=== PATIENT | male | born 1940 | race Caucasian/White ===

== ENCOUNTER 2017-08-03 07:45 | Day surgery (SDC) | payer BC ==
[2017-08-03 08:32] VITALS: BMI 26.9
[2017-08-03] MEDS ORDERED: Liquid Adhesive TOP ONE (09:26)
[2017-08-03] MEDS ORDERED: Lidocaine 1% w Epi 1:100,000 Inj ONE (09:26)
[2017-08-03] MEDS ORDERED: Bupivacaine 0.25% Inj(30mL) ONE (09:26)
[2017-08-03] MEDS ORDERED: Lidocaine 1% Inj (20ml) ONE (09:27)
[2017-08-03] MEDS ORDERED: Bupivacaine 0.5% Inj(30mL) ONE (09:27)
[2017-08-03 10:26] VITALS: O2SAT 95
--- NOTE | 2017-08-03 10:52 | PCM.SURG1 ---
Surgeon's Initial Post Op Note - Surgeon's Notes Surgeon: Santos Collar Packer: Getachew PGY2, Tri PGY1 Type of Anesthesia: Local Pre-Operative Diagnosis: Forehead Lipoma, Back Sebaceous Cyst Operative Findings: Forehead Lipoma, Back Sebaceous Cyst Post-Operative Diagnosis: Forehead Lipoma, Back Sebaceous Cyst Operation Performed: Removal Of Forehead Lipoma, Back Sebaceous Cyst Specimen/Specimens Removed: Forehead Lipoma, Back Sebaceous Cyst Estimated Blood Loss: EBL {In ML}: 5 Blood Products Given: N/A Drains Used: No Drains Post-Op Condition: Good Date of Surgery/Procedure: 08/03/17 Time of Surgery/Procedure: 10:51
[2017-08-03] MEDS ORDERED: Oxycodone/Acetaminophen 5/325 mg Tab PO PRN (11:07)
[2017-08-03 11:13] VITALS: BP 105/59; PULSE 74; RESP 18; TEMP 97.8
--- NOTE | 2017-08-15 18:26 | OP ---
PROCEDURE DATE: 08/03/2017 PREOPERATIVE DIAGNOSIS: Lipoma of the scalp and back. POSTOPERATIVE DIAGNOSES: Lipoma of the scalp and a sebaceous cyst of the back. SURGEON: Mitesh Graham MD DESCRIPTION OF PROCEDURE: In the operating room the patient was identified by name, name of procedure, and laterality. Serially, the scalp and then the back were prepped and draped using a 1020 drape. The area was infiltrated with 1% Xylocaine Marcaine mix at a 1:1 ratio, about 10 mL in the scalp and 10 mL in the back were used. The areas were then opened and the lipoma on the scalp was removed by circumferential dissection, closed with Vicryl and subcuticular PDS and Dermabond. In the back, an ellipse was made and the area was entered. A large amount of sebaceous material was removed. Circumferentially, the wall was removed, it was very adherent, but it was eventually completely removed. It was closed with Vicryl, subcuticular PDS, and Dermabond. The patient was taken to the recovery room in good condition. Mitesh Graham MD
== END 2017-08-03 11:47 | disposition home or self-care (01) ==
LOC: OPSURG 07:45 → EDUNIT# 09:30 → OPSURG 11:47
PROVIDERS: ATTEND Surgery
DX: L72.3 Sebaceous cyst (principal); D17.1 Benign lipomatous neoplasm of skin and subcutaneous tissue of trunk; L72.0 Epidermal cyst

== ENCOUNTER 2018-10-29 14:33 | Observation (INO) | payer BC, MEDICARE ==
[2018-10-29 14:46] VITALS: BMI 28.3
[2018-10-29 15:40] LABS: BASO # 0.01 K/mm3 (0.0-2.0); BASO % 0.2 % (0.0-3.0); EOS % 0.6 % (1.5-5.0); HEMOGLOBIN 14.6 g/dL (14.0-18.0); LYMPH # 2.3 (1.2-3.4); LYMPH % 43.4 % (22.0-35.0); MEAN CORPUSCULAR HGB CONC 31.7 g/dl (31.0-37.0); MEAN PLATELET VOLUME 12.1 fl (7.0-11.0); MONO # 0.3 (0.1-0.6); RBC 5.41 10^6/uL (3.5-6.1); RED CELL DISTRIBUTION WIDTH 14.7 % (11.5-14.5); WHITE BLOOD COUNT 5.2 10^3/uL (4.5-11.0)
[2018-10-29 15:50] LABS: ALB/GLOB RATIO 1.2 (1.1-1.8); ALBUMIN 4.2 g/dL (3.0-4.8); ALT/SGPT 22 U/L (7-56); AST/SGOT 25 U/L (17-59); BLOOD UREA NITROGEN 13 mg/dL (7-21); CALCIUM 9.3 mg/dL (8.4-10.5); GFR NON-AFRICAN AMERICAN > 60
--- NOTE | 2018-10-29 15:59 | RAD ---
Date of service: 10/29/2018 HISTORY: chest pain COMPARISON: No prior. FINDINGS: LUNGS: Minimal left basilar atelectasis or scarring PLEURA: No significant pleural effusion identified, no pneumothorax apparent. CARDIOVASCULAR: Minor aortic atherosclerotic calcification present. Normal cardiac size. No pulmonary vascular congestion. OSSEOUS STRUCTURES: Mild multilevel degenerative spondylosis of the thoracic VISUALIZED UPPER ABDOMEN: Normal. OTHER FINDINGS: None. IMPRESSION: Minor left basilar atelectasis or scarring
[2018-10-29 16:01] LABS: TROPONIN I < 0.01 ng/mL
--- NOTE | 2018-10-29 16:38 | ED PDOC ---
Arrival/HPI - General Chief Complaint: Chest Pain Time Seen by Provider: 10/29/18 15:00 Historian: Patient - History of Present Illness Narrative History of Present Illness (Text): 10/29/18 16:32 Patient reports 3 day history of intermittent chest pain, usually exacerbated by exertion. States that the pain lasts several minutes each time. Pain is non- radiating and sometimes accompanied by shortness of breath and nausea. He is currently pain free. Denies fever, headache, dizziness, cough, abdominal pain, vomiting, diarrhea, back pain, neck pain, or any other complaint. States that he has a history of CAD but does not take medications, and that he has not seen a neonatal critical care nurse for over a decade, last stress test was 10 years ago and was normal. PMD Dr. Oconnor, who earlier called about the patient, [facility], has not seen him for several years, patient should be on medications but is not taking any. Recovery Room Nurse Dr. Cantor, whom patient has not seen in 12 years. Time/Duration: < week Symptom Onset: Gradual Symptom Course: Unchanged Activities at Onset: Light Context: Home Past Medical History - Provider Review Nursing Documentation Reviewed: Yes - Cardiac Hx Pacemaker: No - Pulmonary Hx Asthma: No - Neurological Hx Paralysis: No Hx Seizures: No - HEENT Hx Difficulty Chewing: No - Hematological/Oncological Hx Blood Transfusions: No Hx Blood Transfusion Reaction: No - Musculoskeletal/Rheumatological Hx Musculoskeletal Disorders: No - Psychiatric Hx Emotional Abuse: No Hx Physical Abuse: No Hx Substance Use: No - Surgical History Hx Amputation: No - Anesthesia Hx Anesthesia: Yes Hx Anesthesia Reactions: No Hx Malignant Hyperthermia: No - Suicidal Assessment Feels Threatened In Home Enviroment: No Family/Social History - Physician Review Nursing Documentation Reviewed: Yes Family/Social History: No Known Family HX Smoking Status: Never Smoked Hx Alcohol Use: No Hx Substance Use: No Allergies/Home Meds Allergies/Adverse Reactions: Allergies No Known Allergies Allergy (Verified 12/20/11 15:13) Home Medications: Home Meds Medication Instructions Recorded Confirmed oxyCODONE/Acetaminophen [Percocet 1 tab PO Q4H 08/03/17 08/03/17 5/325 mg Tab] Review of Systems - Physician Review All systems were reviewed & negative as marked: Yes - Review of Systems Constitutional: absent: Fatigue Respiratory: SOB (mild). absent: Cough, Wheezing Cardiovascular: Chest Pain (Left sided, non radiating ) Gastrointestinal: Nausea (mild). absent: Diarrhea, Vomiting Musculoskeletal: absent: Arthralgias, Back Pain, Neck Pain Neurological: absent: Headache, Dizziness Physical Exam - Physical Exam Narrative Physical Exam (Text): 10/29/18 16:40 Normal Stress Test Vital Signs Reviewed: Yes Vital Signs Temp Pulse Resp BP Pulse Ox 10/29/18 14:33 97.8 F 85 18 125/73 100 Temperature: Afebrile Blood Pressure: Normal Pulse: Regular Respiratory Rate: Normal Appearance: Positive for: Well-Appearing, Comfortable Pain Distress: None Mental Status: Positive for: Alert and Oriented X 3 - Systems Exam Head: Present: Atraumatic, Normocephalic Conjunctiva: Present: Normal Mouth: Present: Moist Mucous Membranes Neck: Present: Normal Range of Motion Respiratory/Chest: Present: Clear to Auscultation. No: Respiratory Distress Cardiovascular: Present: Regular Rate and Rhythm, Normal S1, S2 Abdomen: No: Tenderness Upper Extremity: Present: Normal Inspection Lower Extremity: Present: Normal Inspection Neurological: Present: GCS=15, Speech Normal Skin: Present: Warm, Dry. No: Rashes Psychiatric: Present: Alert, Oriented x 3, Normal Insight, Normal Concentration Medical Decision Making ED Course and Treatment: 10/29/18 13:58 Impression: 78 year old M presents to the emergency department complaining of L. sided chest pain x 3 days non radiating, worse with exacerbation but resolves after 5-10 mins Plan: --EKG --Urinalysis -- Reassess and disposition Prior Visits: Notes and results from previous visits were reviewed. Progress Notes: 10/29/18 14:38 EKG reviewed: --NSR @92bpm --Normal Intervals --NO ST Elevations --Normal axis CXR IMPRESSION: Minor left basilar atelectasis or scarring Patient continued to deny chest pain throughout ED course. Lab, CXR, and EKG results reviewed and discussed with patient. Case discussed with Dr. Prado admitting for Dr. Oconnor, accepts patient to his service for admission. - Lab Interpretations Lab Results: Troponin I < 0.01 ng/mL 10/29/18 15:00 Total Bilirubin 0.5 mg/dL (0.2-1.3) 10/29/18 15:00 AST 25 U/L (17-59) 10/29/18 15:00 ALT 22 U/L (7-56) 10/29/18 15:00 Alkaline Phosphatase 81 U/L (38-126) 10/29/18 15:00 Total Protein 7.9 g/dL (5.8-8.3) 10/29/18 15:00 Albumin 4.2 g/dL (3.0-4.8) 10/29/18 15:00 Globulin 3.6 gm/dL 10/29/18 15:00 Albumin/Globulin Ratio 1.2 (1.1-1.8) 10/29/18 15:00 - RAD Interpretation Radiology Orders: 10/29/18 15:16 CXR [CHEST PORTABLE] [RAD] Stat - PA / LEARNING SUPPORT RESOURCE ROOM TEACHER / Resident Statement MD/DO has reviewed & agrees with the documentation as recorded. - Scribe Statement The provider has reviewed the documentation as recorded by the Yash Chavez All medical record entries made by the Gordonibkori were at my direction and personally dictated by me. I have reviewed the chart and agree that the record accurately reflects my personal performance of the history, physical exam, medical decision making, and the department course for this patient. I have also personally directed, reviewed, and agree with the discharge instructions and disposition. Disposition/Present on Arrival - Present on Arrival Any Indicators Present on Arrival: No History of DVT/PE: No History of Uncontrolled Diabetes: No Urinary Catheter: No History of Decub. Ulcer: No History Surgical Site Infection Following: None - Disposition Have Diagnosis and Disposition been Completed?: Yes Diagnosis: Chest pain Disposition: HOSPITALIZED Disposition Time: 17:25 Patient Plan: Admission Condition: STABLE
[2018-10-29 18:50] LABS: HDL CHOLESTEROL 40 mg/dL (29-60)
[2018-10-29 19:01] LABS: LDL CHOLESTEROL 139 mg/dL (0-129)
[2018-10-29 19:49] VITALS: O2SAT 100
[2018-10-29 21:18] LABS: URINE BILIRUBIN NEGATIVE (NEGATIVE); URINE BLOOD TRACE-INTACT (NEGATIVE); URINE GLUCOSE (UA) NEGATIVE (NEGATIVE); URINE LEUKOCYTE ESTERASE TRACE Leu/uL (NEGATIVE); URINE PROTEIN NEGATIVE mg/dL (<30 mg/dL); URINE UROBILINOGEN 0.2 E.U./dL (<1 E.U./dL)
[2018-10-29 21:24] LABS: URINE APPEARANCE CLEAR (CLEAR); URINE COLOR YELLOW (YELLOW)
[2018-10-29 21:28] LABS: URINE BACTERIA TRACE /hpf; URINE EPITHELIAL CELLS 0 - 2 /hpf (0-5); URINE RBC 0 - 2 /hpf (0-2); URINE WBC 0 - 2 /hpf (0-6)
[2018-10-30] MEDS ORDERED: guaiFENesin DM 100 mg-10 mg/5 ml UD PO PRN (06:57)
--- NOTE | 2018-10-30 06:58 | CP.PCM.HP ---
<Arianna Strickland - Last Filed: 10/30/18 11:48> History of Present Illness - History of Present Illness History of Present Illness: IM Resident H&p for Dr. Prado's service CC: Left side chest pain Patient is a 78 y/o [place] Male with PMHx of CAD with 1 stent at [facility], dyslipidemia, medications non compliance, chronic tobacco abuse presenting with left sided chest pain. patient states the chest pain started 3 days ago, is substernal non reproducible, and is intermittent. The chest pain is with ambulation, and is a stabbing chest pain. Patient is also complaining of cough with whitish sputum. Denies fever or chills. No nausea, vomiting, diarrhea, or dysurea. Pt states he doesn't take any medications because he doesn't believe in them. Chest pain resolved at this time. PMD: Dr. Oconnor PMHx: CAD with 1 stent at [facility] 10 years ago, dyslipidemia, medications non compliance, chronic tobacco abuse. PSHx: appendectomy FMHx: CAD in the family Social: smokes 4 cigarettes ago for over 40 years, denies alcohol or illicit drug use. Home meds: none Allergies: NKDA Present on Admission - Present on Admission Any Indicators Present on Admission: No History of DVT/PE: No History of Uncontrolled Diabetes: No Urinary Catheter: No Decubitus Ulcer Present: No History Surgical Site Infection Following: None Review of Systems - Constitutional Constitutional: absent: Fever, Frequent Falls, Headache, Malaise, Snoring - EENT Eyes: absent: Blurred Vision Ears: absent: Disequilibrium, Dizziness Nose/Mouth/Throat: absent: Nasal Congestion, Nasal Discharge, Sore Throat - Cardiovascular Cardiovascular: Chest Pain, Chest Pain with Activity. absent: Chest Pain at Rest, Claudication, Diaphoresis, Dyspnea, Dyspnea on Exertion, Edema, Irregular Heart Rhythm, Leg Edema, Lightheadedness, Rapid Heart Rate, Slow Heart Rate, Syncope - Respiratory Respiratory: Cough. absent: Dyspnea, Hemoptysis, Wheezing, Snoring, Stridor - Gastrointestinal Gastrointestinal: absent: Abdominal Pain, Belching, Bloating, Dysphagia, Nausea, Vomiting - Genitourinary Genitourinary: absent: Difficulty Urinating, Dysuria, Hematuria - Integumentary Integumentary: absent: Wounds - Neurological Neurological: absent: Tremor, Vertigo, Weakness - Psychiatric Psychiatric: absent: Anxiety, Confusion, Depression - Endocrine Endocrine: absent: Fatigue, Polydipsia, Polyphagia, Polyuria - Hematologic/Lymphatic Hematologic: absent: Easy Bleeding, Easy Bruising Past Patient History - Past Social History Smoking Status: Light Smoker < 10 Cigarettes Daily Alcohol: None Drugs: Denies Home Situation {Lives}: With Family - CARDIAC Hx Cardiac Disorders: Yes - PULMONARY Hx Respiratory Disorders: No - NEUROLOGICAL Hx Neurological Disorder: No - HEENT Hx HEENT Problems: No - RENAL Hx Chronic Kidney Disease: No - ENDOCRINE/METABOLIC Hx Endocrine Disorders: No - HEMATOLOGICAL/ONCOLOGICAL Hx Blood Disorders: No - INTEGUMENTARY Hx Dermatological Problems: No - MUSCULOSKELETAL/RHEUMATOLOGICAL Hx Musculoskeletal Disorders: Yes Hx Back Pain: Yes Hx Falls: No - GASTROINTESTINAL Hx Gastrointestinal Disorders: No - GENITOURINARY/GYNECOLOGICAL Hx Genitourinary Disorders: No - PSYCHIATRIC Hx Psychophysiologic Disorder: No - SURGICAL HISTORY Hx Surgeries: Yes Hx Appendectomy: Yes Hx Coronary Stent: Yes - ANESTHESIA Hx Anesthesia: Yes Hx Anesthesia Reactions: No Hx Malignant Hyperthermia: No Meds Allergies/Adverse Reactions: Allergies Allergy/AdvReac Type Severity Reaction Status Date / Time No Known Allergies Allergy Verified 12/20/11 15:13 Physical Exam - Constitutional Appears: No Acute Distress - Head Exam Head Exam: ATRAUMATIC, NORMAL INSPECTION, NORMOCEPHALIC - Eye Exam Eye Exam: EOMI, Normal appearance, PERRL Pupil Exam: NORMAL ACCOMODATION - ENT Exam ENT Exam: Mucous Membranes Dry - Neck Exam Neck exam: Positive for: Normal Inspection. Negative for: Lymphadenopathy, Meningismus, Tenderness, Thyromegaly - Respiratory Exam Respiratory Exam: Clear to Auscultation Bilateral, NORMAL BREATHING PATTERN. absent: Decreased Breath Sounds, Rales, Rhonchi, Wheezes, Respiratory Distress, Stridor - Cardiovascular Exam Cardiovascular Exam: REGULAR RHYTHM, RRR, +S1, +S2. absent: Bradycardia, Tachycardia, Gallop, JVD, Rubs, Systolic Murmur - GI/Abdominal Exam GI & Abdominal Exam: Normal Bowel Sounds, Soft. absent: Distended, Firm, Guarding, Rebound, Rigid, Tenderness - Extremities Exam Extremities exam: Positive for: normal inspection. Negative for: pedal edema - Back Exam Back exam: NORMAL INSPECTION - Neurological Exam Neurological exam: Alert, Oriented x3, Reflexes Normal - Psychiatric Exam Psychiatric exam: Normal Affect, Normal Mood - Skin Skin Exam: Dry, Intact, Warm Additional comments: + xanthelasma on eyelid Results - Vital Signs Recent Vital Signs: Last Vital Signs Temp 98.3 F 10/30/18 00:01 Pulse 71 10/30/18 02:00 Resp 19 10/30/18 00:01 BP 105/67 10/30/18 00:01 Pulse Ox 100 10/29/18 20:55 - Labs Result Diagrams: 10/29/18 15:00 10/29/18 15:00 Labs: Laboratory Results - last 24 hr 10/29/18 10/29/18 10/29/18 15:00 15:00 17:24 WBC 5.2 RBC 5.41 Hgb 14.6 Hct 46.0 MCV 85.0 MCH 27.0 MCHC 31.7 RDW 14.7 H Plt Count 210 MPV 12.1 H Neut % (Auto) 50.8 Lymph % (Auto) 43.4 H [place] % (Auto) 5.0 Eos % (Auto) 0.6 L Baso % (Auto) 0.2 Lymph # (Auto) 2.3 [place] # (Auto) 0.3 Eos # (Auto) 0.0 Baso # (Auto) 0.01 Absolute Neuts (auto) 2.63 Sodium 137 Potassium 3.9 Chloride 100 Carbon Dioxide 29 Anion Gap 12 BUN 13 Creatinine 0.8 Est GFR ( Amer) > 60 Est GFR (Non-Af Amer) > 60 Random Glucose 91 Calcium 9.3 Magnesium 2.1 Total Bilirubin 0.5 AST 25 ALT 22 Alkaline Phosphatase 81 Lactate Dehydrogenase 375 Total Creatine Kinase 75 Troponin I < 0.01 Total Protein 7.9 Albumin 4.2 Globulin 3.6 Albumin/Globulin Ratio 1.2 Triglycerides 172 H Cholesterol 228 H LDL Cholesterol Direct 139 H HDL Cholesterol 40 Urine Color Urine Appearance Urine pH Ur Specific Turner Urine Protein Urine Glucose (UA) Urine Ketones Urine Blood Urine Nitrate Urine Bilirubin Urine Urobilinogen Ur Leukocyte Esterase Urine RBC Urine WBC Ur Epithelial Cells Urine Bacteria 10/29/18 10/29/18 21:04 23:30 WBC RBC Hgb Hct MCV MCH MCHC RDW Plt Count MPV Neut % (Auto) Lymph % (Auto) [place] % (Auto) Eos % (Auto) Baso % (Auto) Lymph # (Auto) [place] # (Auto) Eos # (Auto) Baso # (Auto) Absolute Neuts (auto) Sodium Potassium Chloride Carbon Dioxide Anion Gap BUN Creatinine Est GFR ( Amer) Est GFR (Non-Af Amer) Random Glucose Calcium Magnesium Total Bilirubin AST ALT Alkaline Phosphatase Lactate Dehydrogenase Total Creatine Kinase Troponin I 0.03 D Total Protein Albumin Globulin Albumin/Globulin Ratio Triglycerides Cholesterol LDL Cholesterol Direct HDL Cholesterol Urine Color Yellow Urine Appearance Clear Urine pH 7.0 Ur Specific Turner 1.010 Urine Protein Negative Urine Glucose (UA) Negative Urine Ketones Negative Urine Blood Trace-intact H Urine Nitrate Negative Urine Bilirubin Negative Urine Urobilinogen 0.2 Ur Leukocyte Esterase Trace H Urine RBC 0 - 2 Urine WBC 0 - 2 Ur Epithelial Cells 0 - 2 Urine Bacteria Trace - EKG Data EKG Interpreted by: Myself EKG shows normal: Sinus rhythm Rate: Normal Assessment & Plan - Assessment and Plan (Free Text) Assessment: 1) Chest pain r/o ACS 2) Tobacco abuse 3) Medication non compliance 4) CAD s/p 1 stent 10 years ago 5) Dyslipidemia Plan: Patient was admitted for observartion on tele. No events acute on tele. Amado score of 3. Troponin negative x3, EKG with NSR, and no acute ST/T wave changes. Patient had echo pending read. gave robitussin for cough. Patient with ASCVD risk of 25.7%, thus patient needs high intensity statin, however patient is non compliant and is refusing statin medications. Risks and benefits of statins were explained to the patient, however patient expressed understanding and stated he doesn't believe in medications. Eye Technician was consulted, patient is to be discharged with follow up with color buffer for possible outpatient stress test. Patient will also follow up with his PMD in a week. Smoke cessation counseling was provided to the patient. Discharge medications- ASA 81 mg daily Diet: heart healthy, 2 gram sodium diet Acitvity: resume normal activity - Date & Time Date: 10/30/18 Time: 11:00 <Santino Prado - Last Filed: 10/30/18 17:34> Results - Vital Signs Recent Vital Signs: Last Vital Signs Temp 98.1 F 10/30/18 06:00 Pulse 79 10/30/18 06:00 Resp 20 10/30/18 06:00 BP 99/61 L 10/30/18 06:00 Pulse Ox 100 10/29/18 20:55 - Labs Result Diagrams: 10/29/18 15:00 10/29/18 15:00 Labs: Laboratory Results - last 24 hr 10/29/18 10/29/18 10/29/18 17:24 21:04 23:30 Troponin I 0.03 D Triglycerides 172 H Cholesterol 228 H LDL Cholesterol Direct 139 H HDL Cholesterol 40 Urine Color Yellow Urine Appearance Clear Urine pH 7.0 Ur Specific Turner 1.010 Urine Protein Negative Urine Glucose (UA) Negative Urine Ketones Negative Urine Blood Trace-intact H Urine Nitrate Negative Urine Bilirubin Negative Urine Urobilinogen 0.2 Ur Leukocyte Esterase Trace H Urine RBC 0 - 2 Urine WBC 0 - 2 Ur Epithelial Cells 0 - 2 Urine Bacteria Trace 10/30/18 06:30 Troponin I 0.03 Triglycerides Cholesterol LDL Cholesterol Direct HDL Cholesterol Urine Color Urine Appearance Urine pH Ur Specific Turner Urine Protein Urine Glucose (UA) Urine Ketones Urine Blood Urine Nitrate Urine Bilirubin Urine Urobilinogen Ur Leukocyte Esterase Urine RBC Urine WBC Ur Epithelial Cells Urine Bacteria Assessment & Plan - Assessment and Plan (Free Text) Plan: Pt seen and examined by me. I have reviewed the note of the medical insurance clerk and I agree with it. I have discussed the assessment and plan with the resident. I have reviewed the medications and the last labs.
[2018-10-30 08:15] VITALS: BP 99/61; PULSE 79; RESP 20; TEMP 98.1
--- NOTE | 2018-10-30 11:34 | CON ---
DATE: 10/30/2018 REQUESTING PHYSICIAN: Dr. Prado REASON FOR CONSULTATION: Chest pain. HISTORY: This is a 78-year-old man with known coronary artery disease, who presents to emergency room complaining of chest pain for the past several days. He states that his pain has been worse after coughing. He has had a nonproductive cough for the past several days. He does have known coronary artery disease and underwent stenting a number of years ago. He does not take medications and does not follow up regularly. He denies any exertional dyspnea. PAST HISTORY: Notable for the problems mentioned above. He is an active smoker. He does have a history of hyperlipidemia. He is not diabetic or hypertensive. His past history is otherwise unremarkable. MEDICATIONS: None, although he did take an aspirin over the past several days. SOCIAL HISTORY: He smokes up to a pack per day. He denies alcohol abuse. FAMILY HISTORY: Unremarkable for premature heart disease. REVIEW OF SYSTEMS: A 10-point review of systems is otherwise unremarkable. PHYSICAL EXAMINATION: GENERAL: He is an overweight elderly man. VITAL SIGNS: His blood pressure is 106/66 with a pulse of 70 and sinus, respirations are 14. He is afebrile. HEENT: Normocephalic, atraumatic. NECK: Supple. No JVD noted. CHEST: Bilateral scattered rhonchi and scattered expiratory wheezing noted. HEART: PMI normal position. No pathological murmur or gallops audible. ABDOMEN: Soft, nontender, normoactive bowel sounds. EXTREMITIES: No clubbing, cyanosis, or edema. SKIN: Warm and dry. PSYCHIATRIC: Normal mood and affect. NEUROLOGICAL: Alert and oriented x3. No gross motor or sensory deficits notable. DIAGNOSTIC DATA: Potassium 3.9, BUN and creatinine of 13 and 0.8. Initial troponin is not detected, followup is 0.03. White count 5.2, hemoglobin and hematocrit of 14.6 and 46 with a platelet count of 210,000. Cholesterol was 228 with triglycerides 172, HDL 40, LDL 139. Chest x-ray reveals normal cardiac silhouette with no significant abnormalities seen. Electrocardiogram reveals sinus rhythm with nonspecific ST-T abnormalities. IMPRESSION: 1. Chest pain that sounds more pleuritic in nature and would be consistent with pleural irritation given recent prolonged coughing. 2. Coronary artery disease, status post remote percutaneous coronary intervention, noncompliant with medications and followup. 3. Hyperlipidemia, untreated. 4. Persistent tobacco abuse. RECOMMENDATIONS: Third set of cardiac enzymes will be checked; if this is elevated, continued hospitalization and a cardiac catheterization would be advised. Short of that, an outpatient stress test will be planned. Smoking abstinence was strongly encouraged. He was encouraged to take aspirin and statin therapy as well. I will follow along as needed and arrange outpatient followup as well. Thank you for this consultation. Khalif Mccall MD
--- NOTE | 2018-10-30 19:12 | HP ---
DATE OF EXAM: 10/30/2018 HISTORY OF PRESENT ILLNESS: The patient was seen and examined. I do agree with the note of the medical grade shoemaker. The patient is a 78-year-old who has a history of coronary artery disease and dyslipidemia. He has a noncompliant with medication. He continued to smoke. The patient came in with chest pain. He had cardiac enzymes done and they were negative. He was seen by Cardiology, Dr. Mccall, I did speak to him. He was cleared to be discharged home. The patient was advised to at least take aspirin. He was advised about the importance of taking some medications. He is going to follow with his primary care doctor. The patient had EKG that showed sinus rhythm. He was seen by Pulmonary and is going to be follow up at Pulmonary for his cough. He is prescribed Robitussin. He currently feels well. Discharge home. FOLLOWUP 1. Follow up with Dr. Oconnor in one week. 2. Follow up with Dr. Mccall in 2 to 3 weeks. Santino Prado MD
--- NOTE | 2018-10-31 07:28 | CARD ---
APPROVED REPORT Date of service: 10/30/2018 EXAM: Two-dimensional and M-mode echocardiogram with Doppler and color Doppler. INDICATION Chest Pain 2D DIMENSIONS Left Atrium (2D)3.3 (1.6-4.0cm)IVSd1.2 (0.7-1.1cm) LVDd3.8 (3.9-5.9cm)PWd1.1 (0.7-1.1cm) LVDs2.9 (2.5-4.0cm)FS (%) 24.7 % LVEF (%)49.8 (>50%) M-Mode DIMENSIONS Aortic Root3.00 (2.2-3.7cm)Aortic Cusp Exc.1.90 (1.5-2.0cm) Aortic Valve AoV Peak Lunnfrte105.0cm/Price Peak GR.5mmHg Mitral Valve MV E Zfptczxx86.7cm/sMV A Stwldjgw77.3cm/sE/A ratio0.9 TDI E/Lateral E'0.0E/Medial E'0.0 Tricuspid Valve TR Peak [id number] [id number] Peak Gr.15mmHg [id number] LEFT VENTRICLE The left ventricle is normal size. There is mild concentric left ventricular hypertrophy. The systolic function is mildly impaired. There is mild hypokinesis of the inferoseptal wall. RIGHT VENTRICLE The right ventricle is normal size. The right ventricular systolic function is normal. ATRIA The left atrium size is normal. The right atrium size is normal. The interatrial septum is intact with no evidence for an atrial septal defect. AORTIC VALVE The aortic valve is normal in structure. No aortic regurgitation is present. There is no aortic valvular stenosis. MITRAL VALVE The mitral valve is normal in structure. There is no mitral valve regurgitation noted. TRICUSPID VALVE The tricuspid valve is normal in structure. There is mild tricuspid regurgitation. PULMONIC VALVE The pulmonary valve is normal in structure. GREAT VESSELS The aortic root is normal in size. The IVC is normal in size and collapses >50% with inspiration. PERICARDIAL EFFUSION There is no pleural effusion. There is no pericardial effusion. <Conclusion> Normal chamber size. Normal LV systolic function. Mild concentric LVH. Mild TR.
== END 2018-10-30 10:40 | disposition home or self-care (01) ==
LOC: ED 14:33 → ERH 17:25 → 2RSO 20:59
PROVIDERS: ADMIT Internal Medicine Nephrology; ATTEND Internal Medicine Nephrology
DX: R07.89 Other chest pain (principal); I25.10 Atherosclerotic heart disease of native coronary artery without angina pectoris; E78.5 Hyperlipidemia, unspecified; F17.210 Nicotine dependence, cigarettes, uncomplicated; Z91.14 Patient's other noncompliance with medication regimen; Z91.19 Patient's noncompliance with other medical treatment and regimen; Z95.5 Presence of coronary angioplasty implant and graft
CPT/HCPCS: 36415; 71045; 80053; 80061; 81001; 82550; 83615; 83735; 84484; 85025; 93306; 99285; G0378

== ENCOUNTER 2018-12-08 02:56 | Inpatient (IN) | payer MEDICARE, BC ==
--- NOTE | 2018-12-08 03:17 | ED PDOC ---
Arrival/HPI - General Chief Complaint: Chest Pain Time Seen by Provider: 12/08/18 02:57 Historian: Patient - History of Present Illness Narrative History of Present Illness (Text): 12/08/18 03:17 78 year old male, with past medical history of CAD, hypertension, hyperlipidemia, and s/p stents presents to emergency department brought by EMS (given aspirin and nitro in triage) for left sided chest pain for 1 day. EMS gave patient aspirin and nitroglycerin. Patient describes pain as radiating through left upper back into arm. He also notes subjective dyspnea. Patient was admitted one month ago and advised outpatient follow up stress test. Patient never followed up or did the stress test, and is non compliant with medications and follow up. Patient denies any fevers, chills, headache, dizziness, cough, abdominal pain, nausea, vomiting, diarrhea, back pain, neck pain, or any other complaints. Time/Duration: Other (1 day ) Symptom Onset: Gradual Symptom Course: Unchanged Activities at Onset: Light Context: Home Past Medical History - Provider Review Nursing Documentation Reviewed: Yes - Cardiac Hx Cardiac Disorders: Yes Hx [place]: Yes (1991) - Pulmonary Hx Respiratory Disorders: No - Neurological Hx Neurological Disorder: No - HEENT Hx HEENT Disorder: No - Renal Hx Renal Disorder: No - Endocrine/Metabolic Hx Endocrine Disorders: No - Hematological/Oncological Hx Blood Disorders: No - Integumentary Hx Dermatological Disorder: No - Musculoskeletal/Rheumatological Hx Musculoskeletal Disorders: Yes Hx Back Pain: Yes Hx Falls: No - Gastrointestinal Hx Gastrointestinal Disorders: No - Genitourinary/Gynecological Hx Genitourinary Disorders: No - Psychiatric Hx Psychophysiologic Disorder: No Hx Substance Use: No - Surgical History Hx Appendectomy: Yes Hx Coronary Stent: Yes - Anesthesia Hx Anesthesia: Yes Hx Anesthesia Reactions: No Hx Malignant Hyperthermia: No - Suicidal Assessment Feels Threatened In Home Enviroment: No Family/Social History - Physician Review Nursing Documentation Reviewed: Yes Family/Social History: Unknown Family HX Smoking Status: Former Smoker Hx Alcohol Use: No Hx Substance Use: No Allergies/Home Meds Allergies/Adverse Reactions: Allergies No Known Allergies Allergy (Verified 12/08/18 03:00) Home Medications: Home Meds Medication Instructions Recorded Confirmed oxyCODONE/Acetaminophen [Percocet 1 tab PO Q4H 08/03/17 08/03/17 5/325 mg Tab] Review of Systems - Physician Review All systems were reviewed & negative as marked: Yes - Review of Systems Constitutional: absent: Fevers Respiratory: Other (subjective dyspnea ). absent: SOB, Cough Cardiovascular: Chest Pain (left sided chest pain radiating through left upper back into arm ) Gastrointestinal: absent: Abdominal Pain, Diarrhea, Nausea, Vomiting Genitourinary Male: absent: Urinary Output Changes Musculoskeletal: absent: Back Pain, Neck Pain Skin: absent: Rash Neurological: absent: Headache, Dizziness Physical Exam Vital Signs Reviewed: Yes Temperature: Afebrile Blood Pressure: Normal Pulse: Regular Respiratory Rate: Normal Appearance: Positive for: Well-Appearing, Non-Toxic, Comfortable Pain Distress: None Mental Status: Positive for: Alert and Oriented X 3 - Systems Exam Head: Present: Atraumatic, Normocephalic Pupils: Present: PERRL Extroacular Muscles: Present: EOMI Conjunctiva: Present: Normal Mouth: Present: Moist Mucous Membranes Neck: Present: Normal Range of Motion Respiratory/Chest: Present: Clear to Auscultation, Good Air Exchange. No: Respiratory Distress, Accessory Muscle Use Cardiovascular: Present: Regular Rate and Rhythm, Normal S1, S2. No: Murmurs Abdomen: No: Tenderness, Distention, Peritoneal Signs Back: Present: Normal Inspection Upper Extremity: Present: Normal Inspection. No: Cyanosis, Edema Lower Extremity: Present: Normal Inspection. No: Edema Neurological: Present: GCS=15, CN II-XII Intact, Speech Normal Skin: Present: Warm, Dry, Normal Color. No: Rashes Psychiatric: Present: Alert, Oriented x 3, Normal Insight, Normal Concentration Medical Decision Making ED Course and Treatment: 12/08/18 03:59 Impression: 78 year old male presents to emergency department for left sided chest pain radiating through upper back into arm for 1 day. Plan: -- CT Angiography Disection -- EKG -- Labs -- Chest X-ray -- Urinalysis -- Reassess and disposition Prior Visits: Notes and results from previous visits were reviewed. Progress Notes: 12/08/18 03:59 EKG: Ordered, reviewed, and independently interpreted the EKG. Rate : 63 BPM Rhythm : NSR Interpretation : Non-specific T wave changes Comparison : No previous EKG for comparison. 12/08/18 03:59 Chest X-ray, reviewed by radiologist: Impression: No acute disease 12/08/18 05:42 CT Chest, Abdomen and Pelvis reviewed by radiologist: IMPRESSION: No demonstrated pulmonary embolism or arterial dissection. Mild cardiomegaly. Bilateral basilar atelectatic pulmonary changes. Moderate prostatomegaly. Mild diffuse thickening of the bladder. Uncomplicated colonic diverticulosis. Electronically signed on Dec 08, 2018 5:33:56 AM EDT by: Torey Seth M.D., Certified by ABR, MSK, Neuroradiology 12/08/18 05:[address] owen acceptjayla. 12/08/18 06:33 - RAD Interpretation Radiology Orders: 12/08/18 03:12 CHEST PORTABLE [RAD] Stat - Scribe Statement The provider has reviewed the documentation as recorded by the Scribe Edward Newton All medical record entries made by the Scribe were at my direction and personally dictated by me. I have reviewed the chart and agree that the record accurately reflects my personal performance of the history, physical exam, medical decision making, and the department course for this patient. I have also personally directed, reviewed, and agree with the discharge instructions and disposition. Disposition/Present on Arrival - Present on Arrival Any Indicators Present on Arrival: No History of DVT/PE: No History of Uncontrolled Diabetes: No Urinary Catheter: No History of Decub. Ulcer: No History Surgical Site Infection Following: None - Disposition Have Diagnosis and Disposition been Completed?: Yes Diagnosis: Chest pain Disposition: HOSPITALIZED Disposition Time: 06:00 Condition: STABLE
[2018-12-08 03:38] LABS: BASO # 0.02 K/mm3 (0.0-2.0); BASO % 0.4 % (0.0-3.0); EOS # 0.1 (0.0-0.7); EOS % 2.1 % (1.5-5.0); HEMOGLOBIN 14.3 g/dL (14.0-18.0); LYMPH # 3.5 (1.2-3.4); LYMPH % 66.8 % (22.0-35.0); MEAN CELL VOLUME 84.4 fl (80.0-105.0); MEAN CORPUSCULAR HEMOGLOBIN 27.3 pg (25.0-35.0); MEAN CORPUSCULAR HGB CONC 32.4 g/dl (31.0-37.0); MEAN PLATELET VOLUME 12.2 fl (7.0-11.0); MONO # 0.3 (0.1-0.6); MONO % 5.2 % (1.0-6.0); RBC 5.24 10^6/uL (3.5-6.1); RED CELL DISTRIBUTION WIDTH 14.3 % (11.5-14.5); WHITE BLOOD COUNT 5.2 10^3/uL (4.5-11.0)
[2018-12-08 03:47] LABS: INR 1.32; PARTIAL THROMBOPLASTIN TIME 28.8 Seconds (26.9-38.3); PROTHROMBIN TIME 14.6 SECONDS (9.4-12.5)
[2018-12-08] MEDS ORDERED: Morphine 2 mg/ml ISec IVP STA (03:49)
[2018-12-08 03:54] LABS: ALB/GLOB RATIO 1.1 (1.1-1.8); ALBUMIN 3.6 g/dL (3.0-4.8); BLOOD UREA NITROGEN 14 mg/dL (7-21); CALCIUM 8.7 mg/dL (8.4-10.5); GFR NON-AFRICAN AMERICAN > 60
[2018-12-08 04:05] LABS: TROPONIN I < 0.01 ng/mL
[2018-12-08 04:12] LABS: ALT/SGPT 21 U/L (7-56); AST/SGOT 27 U/L (17-59)
--- NOTE | 2018-12-08 05:50 | CP.PCM.HP ---
<Antolin Leslie - Last Filed: 12/08/18 06:14> History of Present Illness - History of Present Illness History of Present Illness: PGY-1 History and Physical [address] Barbosa Patient is a 78 year old male with past medical history of CAD s/p 1 stent placement, [place] (1991), HLD, medication non-compliance, tobacco abuse presenting to the ED with acute onset L sided chest pain for the past day. Pain is sudden, radiates down the L arm and to the back, rated 10/10 in severity at its worst. Patient was given ASA and nitro en route by EMS as well as in triage, which alleviated the pain. Patient also endorses associated sob and dry cough. Of note, patient was admitted one month ago for chest pain and recommened outpatient follow-up with stress test. Patient never followed up however, and is non-compliant with medications, states he takes meds "when I need them" but does not have any meds at home.No fevers/chills, headaches, palpitations, abdominal pain, n/v/d/c, dysuria, or changes in stool. 12 pt ROS reviewed and otherwise negative. PMHx: CAD w/ 1 stent at [facility] 10 years ago, [place], HLD, medications non-compliance, chronic tobacco abuse PSHx: appendectomy Allergies: NKDA Home Meds: reviewed Family Hx: CAD runs in family Social Hx: 2 cigarettes/day x 40+ years, denies alcohol or illicit drug use PMD: Dr. Oconnor Present on Admission - Present on Admission Any Indicators Present on Admission: No Review of Systems - Review of Systems All systems: reviewed and no additional remarkable complaints except Review of Systems: as per HPI Past Patient History - Past Social History Smoking Status: Former Smoker - CARDIAC Hx Cardiac Disorders: Yes Hx Heart Attack: Yes (1991) - PULMONARY Hx Respiratory Disorders: No - NEUROLOGICAL Hx Neurological Disorder: No - HEENT Hx HEENT Problems: No - RENAL Hx Chronic Kidney Disease: No - ENDOCRINE/METABOLIC Hx Endocrine Disorders: No - HEMATOLOGICAL/ONCOLOGICAL Hx Blood Disorders: No - INTEGUMENTARY Hx Dermatological Problems: No - MUSCULOSKELETAL/RHEUMATOLOGICAL Hx Musculoskeletal Disorders: Yes Hx Back Pain: Yes Hx Falls: No - GASTROINTESTINAL Hx Gastrointestinal Disorders: No - GENITOURINARY/GYNECOLOGICAL Hx Genitourinary Disorders: No - PSYCHIATRIC Hx Psychophysiologic Disorder: No Hx Substance Use: No - SURGICAL HISTORY Hx Appendectomy: Yes Hx Coronary Stent: Yes - ANESTHESIA Hx Anesthesia: Yes Hx Anesthesia Reactions: No Hx Malignant Hyperthermia: No Meds Allergies/Adverse Reactions: Allergies Allergy/AdvReac Type Severity Reaction Status Date / Time No Known Allergies Allergy Verified 12/08/18 03:00 Physical Exam - Constitutional Appears: No Acute Distress - Head Exam Head Exam: ATRAUMATIC, NORMAL INSPECTION, NORMOCEPHALIC - Eye Exam Eye Exam: EOMI, Normal appearance, PERRL Pupil Exam: NORMAL ACCOMODATION - ENT Exam ENT Exam: Mucous Membranes Moist, Normal Exam - Neck Exam Neck exam: Positive for: Full Rom, Normal Inspection. Negative for: Tenderness - Respiratory Exam Respiratory Exam: Clear to Auscultation Bilateral, NORMAL BREATHING PATTERN. absent: Accessory Muscle Use, Respiratory Distress - Cardiovascular Exam Cardiovascular Exam: REGULAR RHYTHM, +S1, +S2 - GI/Abdominal Exam GI & Abdominal Exam: Normal Bowel Sounds, Soft. absent: Distended, Firm, Guarding, Rebound, Rigid, Tenderness - Extremities Exam Extremities exam: Positive for: normal capillary refill, normal inspection, pedal pulses present. Negative for: calf tenderness, pedal edema - Back Exam Back exam: NORMAL INSPECTION - Neurological Exam Neurological exam: Alert, CN II-XII Intact, Oriented x3 - Skin Skin Exam: Dry, Intact, Normal Color, Warm Results - Vital Signs Recent Vital Signs: Last Vital Signs Temp 97.7 F 12/08/18 03:12 Pulse 64 12/08/18 04:51 Resp 14 12/08/18 04:51 BP 123/70 12/08/18 04:51 Pulse Ox 100 12/08/18 04:51 - Labs Result Diagrams: 12/08/18 03:30 12/08/18 03:30 Labs: Laboratory Results - last 24 hr 12/08/18 12/08/18 12/08/18 03:30 03:30 03:30 WBC 5.2 RBC 5.24 Hgb 14.3 Hct 44.2 MCV 84.4 MCH 27.3 MCHC 32.4 RDW 14.3 Plt Count 178 MPV 12.2 H Neut % (Auto) 25.5 L Lymph % (Auto) 66.8 H [place] % (Auto) 5.2 Eos % (Auto) 2.1 Baso % (Auto) 0.4 Lymph # (Auto) 3.5 H [place] # (Auto) 0.3 Eos # (Auto) 0.1 Baso # (Auto) 0.02 Absolute Neuts (auto) 1.34 L PT 14.6 H INR 1.32 APTT 28.8 Sodium 136 Potassium 4.3 Chloride 103 Carbon Dioxide 26 Anion Gap 11 BUN 14 Creatinine 0.7 L Est GFR ( Amer) > 60 Est GFR (Non-Af Amer) > 60 Random Glucose 132 H Calcium 8.7 Magnesium 1.8 Total Bilirubin 0.5 AST 27 ALT 21 Alkaline Phosphatase 68 Lactate Dehydrogenase 464 Total Creatine Kinase 48 Troponin I < 0.01 D Total Protein 6.8 Albumin 3.6 Globulin 3.2 Albumin/Globulin Ratio 1.1 Assessment & Plan - Assessment and Plan (Free Text) Assessment: 78 year old male with past medical history of CAD s/p 1 stent placement, [place] (1991), HLD, medication non-compliance, tobacco abuse presenting to the ED with acute onset L sided chest pain for the past day Plan: Chest pain r/o ACS -trop x 1 negative -EKG: NSR @63 bpm, nonspecific T wave changes -CXR: no acute findings -CT chest/abdomen/pelvis w/ IV contrast: No demonstrated pulmonary embolism or arterial dissection. Mild cardiomegaly. Bilateral basilar atelectatic pulmonary changes. Moderate prostatomegaly. Mild diffuse thickening of the bladder. Uncomplicated colonic diverticulosis. -serial trops -repeat EKG -lipid panel -TSH/free T4 -a1c CAD s/p stent placement -ASA 81 mg PO daily -Lipitor 40 mg PO HS -Cardiology (Dr. Mccall) consulted Tobacco Abuse -smoking cessation counseling -nicotine patch held for possible cardio intervention Medication non-compliance -importance of complying with meds and f/u emphasized to pt HLD -patient with high ASCVD risk, thus needs high intensity statin -Lipitor 40 mg PO HS PPx, Diet, Disposition -DVT ppx: scds -Diet: HHD -PT on board Case discussed with Dr. Chelsey Leslie DO, PGY-1 <Chaparrita Barbosa - Last Filed: 12/08/18 06:52> Results - Vital Signs Recent Vital Signs: Last Vital Signs Temp 97.7 F 12/08/18 03:12 Pulse 62 12/08/18 06:00 Resp 14 12/08/18 06:00 BP 109/73 12/08/18 06:00 Pulse Ox 98 12/08/18 06:00 - Labs Result Diagrams: 12/08/18 03:30 12/08/18 03:30 Labs: Laboratory Results - last 24 hr 12/08/18 12/08/18 12/08/18 03:30 03:30 03:30 WBC 5.2 RBC 5.24 Hgb 14.3 Hct 44.2 MCV 84.4 MCH 27.3 MCHC 32.4 RDW 14.3 Plt Count 178 MPV 12.2 H Neut % (Auto) 25.5 L Lymph % (Auto) 66.8 H [place] % (Auto) 5.2 Eos % (Auto) 2.1 Baso % (Auto) 0.4 Lymph # (Auto) 3.5 H [place] # (Auto) 0.3 Eos # (Auto) 0.1 Baso # (Auto) 0.02 Absolute Neuts (auto) 1.34 L PT 14.6 H INR 1.32 APTT 28.8 Sodium 136 Potassium 4.3 Chloride 103 Carbon Dioxide 26 Anion Gap 11 BUN 14 Creatinine 0.7 L Est GFR ( Amer) > 60 Est GFR (Non-Af Amer) > 60 Random Glucose 132 H Calcium 8.7 Phosphorus Magnesium 1.8 Total Bilirubin 0.5 AST 27 ALT 21 Alkaline Phosphatase 68 Lactate Dehydrogenase 464 Total Creatine Kinase 48 Troponin I < 0.01 D Total Protein 6.8 Albumin 3.6 Globulin 3.2 Albumin/Globulin Ratio 1.1 Triglycerides Cholesterol HDL Cholesterol 12/08/18 06:16 WBC RBC Hgb Hct MCV MCH MCHC RDW Plt Count MPV Neut % (Auto) Lymph % (Auto) [place] % (Auto) Eos % (Auto) Baso % (Auto) Lymph # (Auto) [place] # (Auto) Eos # (Auto) Baso # (Auto) Absolute Neuts (auto) PT INR APTT Sodium Potassium Chloride Carbon Dioxide Anion Gap BUN Creatinine Est GFR ( Amer) Est GFR (Non-Af Amer) Random Glucose Calcium Phosphorus 3.3 Magnesium 2.0 Total Bilirubin AST ALT Alkaline Phosphatase Lactate Dehydrogenase Total Creatine Kinase Troponin I Total Protein Albumin Globulin Albumin/Globulin Ratio Triglycerides 126 Cholesterol 182 HDL Cholesterol 40 Attending/Attestation - Attestation I have personally seen and examined this patient.: Yes I have fully participated in the care of the patient.: Yes I have reviewed all pertinent clinical information: Yes Notes (Text): 12/08/18 06:51 Seen and examined. discussed with resident. needs cardiology consult for angina and noncompliance.
[2018-12-08] MEDS ORDERED: Nitroglycerin 0.4 mg/hr Top Patch TD STA (06:53)
[2018-12-08 07:01] LABS: FREE T4 1.17 ng/dL (0.78-2.19)
--- NOTE | 2018-12-08 09:17 | CT ---
PROCEDURE: CT Angiography Chest, Abdomen and Pelvis with and without intravenous contrast HISTORY: cp radiating to back COMPARISON: None. TECHNIQUE: Contiguous axial images of the chest, abdomen and pelvis were obtained in the phase of aortic enhancement. A noncontrast enhanced CT of the chest was also obtained to evaluate for possible intramural thrombus. Coronal and sagittal reformats were generated. IV dose administered: 100 cc of Omni 350 Radiation dose: Total exam DLP = 667.37 mGy-cm. This CT exam was performed using one or more of the following dose reduction techniques: Automated exposure control, adjustment of the mA and/or kV according to patient size, and/or use of iterative reconstruction technique. FINDINGS: CT ANGIOGRAPHY OF THE CHEST WITH & WITHOUT CONTRAST: ABDOMINAL AORTA:: There is no evidence of dissection or aneurysm. No evidence of pulmonary embolus AORTA (CHEST AND ABDOMEN): The thoracic and abdominal aorta are unremarkable, without aneurysm, dissection or rupture. No intramural thrombus identified in the thoracic aorta on the non-contrast ct of the chest. The celiac axis, superior mesenteric artery, inferior mesenteric artery and the renal arteries are widely patent. The pelvic arteries are unremarkable. LUNGS: Clear. No nodule, mass or consolidation. MEDIASTINUM: Unremarkable. Normal caliber aorta and pulmonary arterial trunk. No aortic dissection. Normal size heart. LYMPH NODES: Unremarkable. PLEURA: Unremarkable. No pneumothorax. No pleural fluid. BONES: Unremarkable. OTHER FINDINGS: None. CT ANGIOGRAPHY OF THE ABDOMEN AND PELVIS WITH CONTRAST: LIVER: Unremarkable. No gross lesion or ductal dilatation. GALLBLADDER AND BILE DUCTS: Unremarkable. PANCREAS: Unremarkable. No gross lesion or ductal dilatation. SPLEEN: Unremarkable. ADRENALS: Unremarkable. No mass. KIDNEYS AND URETERS: Unremarkable. No hydronephrosis. No solid mass. VASCULATURE: Unremarkable. No aortic aneurysm. Aortic calcification STOMACH AND BOWEL: Unremarkable. No obstruction. No gross mural thickening. APPENDIX: Normal appendix. PERITONEUM: Unremarkable. No free fluid. No free air. LYMPH NODES: Unremarkable. No enlarged lymph nodes. BLADDER: There is thickening of the bladder wall probably due to partial outlet obstruction. There is a right-sided bladder diverticulum containing multiple small stones. REPRODUCTIVE: The prostate is enlarged and partially calcified measuring 57 x 65 mm BONES: No acute fracture. OTHER FINDINGS: The report concurs with the preliminary [facility] report IMPRESSION: No evidence of aortic dissection or pulmonary embolus.
[2018-12-08 09:29] VITALS: BMI 3124.4
[2018-12-08] MEDS: Metoprolol Succinate 25 mg XL Tab PO SCH (09:35)
[2018-12-08] MEDS ORDERED: Enoxaparin 40 mg Syringe SC SCH (10:00)
--- NOTE | 2018-12-08 10:57 | RAD ---
Date of service: 12/08/2018 HISTORY: cp COMPARISON: 10/29/2018 TECHNIQUE: 1 view obtained. FINDINGS: LUNGS: No active pulmonary disease. PLEURA: No significant pleural effusion identified, no pneumothorax apparent. CARDIOVASCULAR: No aortic atherosclerotic calcification present. Normal cardiac size. No pulmonary vascular congestion. OSSEOUS STRUCTURES: No significant abnormalities. VISUALIZED UPPER ABDOMEN: Normal. OTHER FINDINGS: None. IMPRESSION: No active disease.
--- NOTE | 2018-12-08 16:29 | HP ---
DATE OF EXAM: 12/08/2018 CHIEF COMPLAINT AND HISTORY OF PRESENT ILLNESS: This is a 78-year-old male, who has come into the hospital complaining of left-sided chest pain. The patient has a history of coronary artery disease, hypertension, and dyslipidemia. He was admitted to the hospital one month ago, but has not been able to get a stress test. He states that the appointment that he has is in December. The patient has no complaints of any fevers or chills. No shortness of breath. No nausea. No vomiting or abdominal pain or back pain or dysuria or frequency. The patient's pain is not exertional. He has no dysuria or frequency. No nocturia. He has no associated nausea or vomiting. He says nothing makes the pain better or worse. PAST MEDICAL HISTORY: 1. Coronary artery disease with stent. 2. Dyslipidemia. PAST SURGICAL HISTORY: Appendectomy. FAMILY HISTORY: There is coronary artery disease in the family. SOCIAL HISTORY: Smokes two cigarettes per day for the past 40 years. He denies alcohol or drugs. ALLERGY: HE HAS NO KNOWN DRUG ALLERGIES. HOME MEDICATIONS: Percocet. PHYSICAL EXAMINATION: VITAL SIGNS: Temperature is 97.7, pulse is 62, blood pressure is 109/73, respiration is 14, and O2 saturation 98%. GENERAL: The patient is lying in bed, comfortable, and in no acute distress. HEENT: Atraumatic and normocephalic. Anicteric sclerae. Moist mucosa. [place] conjunctivae. No oral lesions. NECK: No JVD, anterior and posterior adenopathy, thyromegaly, or bruits. CARDIOVASCULAR: S1 and S2 regular. No murmurs, rubs or gallops. LUNGS: Clear to auscultation bilaterally. No wheezes, rales, or rhonchi. ABDOMEN: Bowel sounds are positive. Soft, nontender and nondistended. No hepatosplenomegaly. No rebound and no guarding. EXTREMITIES: No cyanosis, clubbing, or edema. NEUROLOGIC: No facial asymmetry. Tongue is midline. No uvula deviation. Power is 5/5 upper extremities and lower extremities. Sensation intact in upper extremities and lower extremities. PSYCHIATRIC: She is awake, alert and oriented x3. No anxiety or depression. She has normal affect. GENITOURINARY: No CVA tenderness. VASCULAR: 2+ pulses in the carotid pulses and pedal pulses. SKIN: No erythema or nodules. SPINE: Shows normal curvature. DIAGNOSTIC DATA: EKG done shows sinus rhythm, rate of 63. No ST-T changes. Chest x-ray shows no infiltrates. CT of the chest done shows mild diffuse thickening of the gallbladder. There is moderate enlarged prostate. No embolism. LABORATORY DATA: White count is 5.2 and hemoglobin 14.3. Chemistry shows creatinine is 0.7. Troponin is 0.01. LDL is 123 and TSH is 0.89. ASSESSMENT: 1. Chest pain. 2. Coronary artery disease. 3. Dyslipidemia. 4. Smoking. PLAN: The patient is brought in as an observation. The patient is going to be seen by Dr. Mccall. He most likely needs a stress test. There is a troponin that has been ordered for this morning. The patient continues on Lipitor for dyslipidemia. He is on aspirin daily. He will await for the input from the Generation Manager, even though the history states that the patient has hypertension, his blood pressure is currently controlled and not on any medications. Santino Prado MD
[2018-12-08] MEDS: Heparin25000 units/250ml 1/2NS 25,000 UNITS/250 ML BAG IV SCH (18:32)
--- NOTE | 2018-12-08 18:48 | CON ---
DATE: 12/08/2018 REQUESTING PHYSICIAN: Dr. Prado. REASON FOR CONSULTATION: Chest pain. HISTORY: This is a 78-year-old male with known coronary artery disease, status post prior PCI; admitted with complaints of chest discomfort. He was admitted one month ago with chest pain at that time. He was advised an outpatient stress test, but did not schedule that at this point in time. He takes no cardiac medications whatsoever. He states he is unable to take aspirin because it causes some increased reflux symptoms. He describes his chest pain as a fullness radiating to his left shoulder. His pain improved with rest. He became concerned and presents to the emergency room. PAST MEDICAL HISTORY: Notable for the problems mentioned above. He does have a history of hyperlipidemia. He continues to smoke. MEDICATIONS: Occasional Zantac. SOCIAL HISTORY: He is a smoker up to a pack per day. Denies alcohol use. FAMILY HISTORY: Both parents are from age-related illness. No family history of premature heart disease. REVIEW OF SYSTEMS: A 12-point review of systems is unremarkable except for the problems mentioned above as well as occasional joint pain. He denies any claudication. PHYSICAL EXAMINATION: GENERAL: He is an elderly man, who appears comfortable at the present time. VITAL SIGNS: His blood pressure is 110/72 with a pulse of 66, respirations are 16. He is afebrile. HEENT: Normocephalic, atraumatic. NECK: Supple. No JVD noted. CHEST: Few scattered rhonchi heard. HEART: PMI in normal position. No pathological gallops noted. ABDOMEN: Soft, nontender with normoactive bowel sounds. EXTREMITIES: No edema. DIAGNOSTIC DATA: Potassium 4.3, BUN and creatinine 40 and 0.7, glucose 132. Troponin is negative. White count 5.2, hemoglobin and hematocrit 14.3 and 44.2 with the platelet count 178,000. PT/PTT is 14.6 and 28.8. Cholesterol is 182 with triglycerides 126, HDL 40, LDL 123. Electrocardiogram revealed sinus rhythm with nonspecific ST-T abnormalities. Chest x-ray will be reviewed. IMPRESSION: 1. Chest pain, somewhat suspicious for angina. 2. Known coronary artery disease, status post prior percutaneous coronary intervention. 3. Noncompliance with medications. 4. Persistent tobacco abuse. 5. Hyperlipidemia with suboptimal control. RECOMMENDATIONS: Additional cardiac enzymes will be obtained. If these are abnormal and if he has chest pain at rest, it will be advisable for him to remain in hospital and undergo cardiac catheterization early next week. If his cardiac enzymes are negative and if he has no further chest pain, then discharge home with expeditious arrangement of an outpatient stress test is advised. Aspirin therapy should be resumed if tolerated, statin therapy and beta-adriana therapy have been instituted. The need for compliance with medications and regular followup was discussed with him. The need for smoking abstinence was also reviewed with him as well. Thank you for this consultation. I will be happy to arrange for his outpatient followup. Khalif Mccall MD
--- NOTE | 2018-12-08 19:18 | CARD ---
APPROVED REPORT Date of service: 12/08/2018 EKG Measurement Heart [id number] <Conclusion> Normal sinus rhythm Non diagnostic Q waves in the anterior and lateral leads- cannot exclude remote MT CCR Abnormal ECG
--- NOTE | 2018-12-08 19:23 | CARD ---
APPROVED REPORT Date of service: 12/08/2018 EKG Measurement Heart [id number] <Conclusion> Normal sinus rhythm Possible Lateral infarct, age undetermined CCR Abnormal ECG
[2018-12-09 07:53] LABS: BASO # 0.01 K/mm3 (0.0-2.0); BASO % 0.2 % (0.0-3.0); EOS # 0.1 (0.0-0.7); EOS % 2.1 % (1.5-5.0); HEMOGLOBIN 14.1 g/dL (14.0-18.0); LYMPH # 2.4 (1.2-3.4); LYMPH % 54.9 % (22.0-35.0); MEAN CELL VOLUME 85.4 fl (80.0-105.0); MEAN CORPUSCULAR HEMOGLOBIN 26.7 pg (25.0-35.0); MEAN CORPUSCULAR HGB CONC 31.2 g/dl (31.0-37.0); MONO # 0.3 (0.1-0.6); RBC 5.29 10^6/uL (3.5-6.1); RED CELL DISTRIBUTION WIDTH 14.4 % (11.5-14.5); WHITE BLOOD COUNT 4.4 10^3/uL (4.5-11.0)
[2018-12-09 08:02] LABS: ALB/GLOB RATIO 1.2 (1.1-1.8); ALBUMIN 3.5 g/dL (3.0-4.8); ALT/SGPT 24 U/L (7-56); AST/SGOT 41 U/L (17-59); BLOOD UREA NITROGEN 10 mg/dL (7-21); CALCIUM 8.8 mg/dL (8.4-10.5); GFR NON-AFRICAN AMERICAN > 60
[2018-12-09] MEDS: Metoprolol Succinate 25 mg XL Tab PO SCH (08:38)
--- NOTE | 2018-12-09 11:28 | PN ---
DATE: 12/09/2018 SUBJECTIVE: The patient is seen lying in bed on telemetry. Followup troponin yesterday and ernesto to 2.48. He had some chest discomfort yesterday. He is now chest pain free. He was started on Plavix and heparin yesterday. His current medications include aspirin, Plavix, Lipitor 40 mg daily, Toprol XL 25 mg daily, and IV heparin. PHYSICAL EXAMINATION: GENERAL: He is an elderly man who appears comfortable at rest. VITAL SIGNS: Blood pressure 110/72, pulse 70 in sinus, respiratory rate 14. He is afebrile. HEENT: No JVD. CHEST: Few scattered rhonchi. HEART: Soft systolic murmur present at the left sternal border. ABDOMEN: Soft. Nontender. Normoactive bowel sounds. EXTREMITIES: No edema. DIAGNOSTIC DATA: Potassium 4.6, BUN and creatinine 10 and 0.8. White count 4.4, hemoglobin and hematocrit 14.1 and 45.2, platelet count 157,000. PTT is 80. IMPRESSION: 1. Xop-BW-ljvuohm elevation myocardial infarction, now chest pain free. 2. Known coronary artery disease, status post remote percutaneous coronary intervention. 3. Tobacco abuse. 4. Hyperlipidemia. 5. Medical noncompliance. RECOMMENDATIONS: His current medications will be continued for now. Plans will be made for cardiac catheterization and possible PCI in the morning. Further recommendations will be made based upon those findings. The need for tobacco abuse and compliance with medical therapy was discussed with him as well. I will follow along and make further recommendations as appropriate. Khalif Mccall MD
--- NOTE | 2018-12-09 16:51 | PN ---
DATE: 12/09/2018 SUBJECTIVE: The patient is 78 years old, seen and examined, sitting in chair, seems to be comfortable. No more chest pain. He is 78 years old [place] male, very pleasant retired custom officer, states he had chest pain yesterday, he came to ER, feeling well whatever is being done for him. He has history of angioplasty in the past and had one stent placed. PHYSICAL EXAMINATION GENERAL: He is comfortable. No more chest pain. No shortness of breath. No nausea or vomiting. No diarrhea. VITAL SIGNS: He is afebrile. Pulse is 66, respirations 18, and blood pressure 104/66. LUNGS: Bilateral fair airflow. No rhonchi or crackles noted. HEAD AND NECK: He has nonicteric sclerae, pink conjunctivae. No lymphadenopathy. No thyromegaly. No JVD noted. HEART: S1 and S2 audible. He has soft systolic murmur. ABDOMEN: Soft and nontender. No rebound. No guarding. NEUROLOGIC: He is awake and alert, able to communicate. EXTREMITIES: Bilateral legs, no edema. Peripheral pulses noted. LABORATORY DATA: WBC 4.4, hemoglobin 14, hematocrit 45, and platelet of 157. PT 14.6, INR 1.32, PTT 84. Chemistry: Sodium 137, potassium 4.6, chloride 101, CO2 of 32, BUN 10, creatinine 0.8, and blood sugar 193. His first troponin is 0.66, second one is 2.48. His EKG done yesterday shows normal sinus rhythm, nondiagnostic Q waves in the lateral leads. ASSESSMENT 1. Kcg-VH-jrmubduot myocardial infarction. 2. History of coronary artery disease, status post angioplasty in the past. 3. Active smoker, quit two weeks ago. 4. Hyperlipidemia. 5. Chronic back pain. PLAN: The patient is scheduled for cardiac cath in a.m. Currently, he is on aspirin, he is on IV heparin, he is statins, and he is on Plavix. Out of bed to chair. He is on SCDs. Jolanta Tipton MD [facility] # [id number]
[2018-12-09] MEDS: Heparin25000 units/250ml 1/2NS 25,000 UNITS/250 ML BAG IV SCH (21:09)
[2018-12-10 03:54] LABS: BASO # 0.02 K/mm3 (0.0-2.0); BASO % 0.5 % (0.0-3.0); EOS # 0.1 (0.0-0.7); EOS % 2.5 % (1.5-5.0); HEMOGLOBIN 14.3 g/dL (14.0-18.0); LYMPH # 2.4 (1.2-3.4); LYMPH % 55.2 % (22.0-35.0); MEAN CELL VOLUME 84.4 fl (80.0-105.0); MEAN CORPUSCULAR HEMOGLOBIN 27.3 pg (25.0-35.0); MEAN CORPUSCULAR HGB CONC 32.4 g/dl (31.0-37.0); MEAN PLATELET VOLUME 11.6 fl (7.0-11.0); MONO # 0.3 (0.1-0.6); MONO % 5.7 % (1.0-6.0); RBC 5.24 10^6/uL (3.5-6.1); RED CELL DISTRIBUTION WIDTH 14.4 % (11.5-14.5); WHITE BLOOD COUNT 4.4 10^3/uL (4.5-11.0)
[2018-12-10 04:08] LABS: ALB/GLOB RATIO 1.1 (1.1-1.8); ALBUMIN 3.4 g/dL (3.0-4.8); ALT/SGPT 28 U/L (7-56); AST/SGOT 32 U/L (17-59); BLOOD UREA NITROGEN 13 mg/dL (7-21); CALCIUM 8.8 mg/dL (8.4-10.5); GFR NON-AFRICAN AMERICAN > 60
[2018-12-10 06:14] VITALS: O2SAT 95
[2018-12-10] MEDS: Metoprolol Succinate 25 mg XL Tab PO SCH (07:50)
[2018-12-10 09:18] LABS: URINE BILIRUBIN NEGATIVE (NEGATIVE); URINE BLOOD TRACE-INTACT (NEGATIVE); URINE GLUCOSE (UA) NEGATIVE (NEGATIVE); URINE LEUKOCYTE ESTERASE TRACE Leu/uL (NEGATIVE); URINE PROTEIN NEGATIVE mg/dL (<30 mg/dL); URINE UROBILINOGEN 0.2 E.U./dL (<1 E.U./dL)
[2018-12-10 09:27] LABS: URINE APPEARANCE CLEAR (CLEAR); URINE COLOR YELLOW (YELLOW)
[2018-12-10 10:05] LABS: URINE BACTERIA FEW /hpf
[2018-12-10] MEDS ORDERED: Lidocaine PF 2% (5 ml) Inj (For Cardiac Arrhy) ONE (10:36)
[2018-12-10] MEDS ORDERED: Iodixanol 320 MG/ML 200 ML BOTTLE IV ONE (10:36)
[2018-12-10] MEDS ORDERED: Midazolam 2 MG/2 ML VIAL ONE ×2 (10:51→11:09)
[2018-12-10] MEDS ORDERED: Sodium Chloride 0.9% 1,000 ML IV SCH (11:30)
--- NOTE | 2018-12-10 13:39 | PN ---
DATE: 12/10/2018 SUBJECTIVE: The patient is seen lying on a stretcher in the cath lab nurse. Cardiac catheterization is planned for this morning. He had no chest pain overnight. CURRENT MEDICATIONS: Include aspirin, Plavix, IV heparin, Lipitor, and Toprol XL. OBJECTIVE: GENERAL: He is an elderly man who appears comfortable at rest. VITAL SIGNS: Blood pressure is 104/66 with pulse of 60 in sinus, respiratory rate is 14. He is afebrile. HEENT: No JVD. CHEST: Few scattered rhonchi. HEART: Systolic murmur at left sternal border. ABDOMEN: Soft, nontender. Normoactive bowel sounds. EXTREMITIES: No edema. DIAGNOSTIC DATA: Potassium 4.1, BUN and creatinine 13 and 0.7. White count is 4.4, hemoglobin and hematocrit 14.3 and 44.2 with platelet count 149,000. PTT is 67. IMPRESSION: 1. Recent non-ST segment elevation myocardial infarction, clinically stable. 2. Known coronary artery disease, status post prior percutaneous coronary intervention. 3. History of tobacco abuse. 4. History of medical noncompliance. RECOMMENDATIONS: The patient will undergo cardiac catheterization and possible PCI this morning. Risks and benefits have been discussed in detail with the patient, he is agreeable to proceed. Further recommendations will be made based upon those findings. I will follow along as needed. Khalif Mccall MD
[2018-12-10 13:56] VITALS: RESP 18
--- NOTE | 2018-12-10 16:42 | CARDCATH ---
PROCEDURE DATE: 12/10/2018 PROCEDURES: 1. Selective left to right coronary angiography. 2. Left ventriculography. 3. Right femoral arteriography. 4. Angio-Seal deployment. HISTORY: This is a 78-year-old male with known coronary disease status post PCI, admitted with chest pain and mild troponin elevation. Cardiac catheterization was advised. INDICATIONS: As above. FINDINGS: HEMODYNAMICS: The aortic pressure was 110/70 and left ventricular pressure 110/16. CORONARY ANATOMY: 1. The left mainstem was normal appearing. 2. The left anterior descending artery had mild calcification in its proximal and mid segments. The vessel had minimal irregularities in the proximal and mid segments. In the early distal segment, there was moderate diffuse 40% tapering present. The diagonal branches were fairly small and the first and second diagonal branches had evidence of severe diffuse disease. 3. The left circumflex artery gave rise to one large obtuse marginal branch. The previously placed stent in the circumflex artery was patent. There was multiple 40% irregularities in the proximal segment of the vessel. 4. The right coronary artery was dominant. This had mild calcification in its proximal mid-segment as well. Mild diffuse irregularities were present in the proximal mid-segment. The posterior descending artery was a fairly small diffusely diseased vessel. LEFT VENTRICULOGRAPHY: A hand injection was performed in the left ventricle revealing evidence of borderline LV hypokinesis and overall ejection fraction of 50%. RIGHT FEMORAL ARTERIOGRAPHY: A right femoral arteriogram was performed in the BRIDGES projection and revealed no evidence of significant disease and appropriate level of arterial puncture. The puncture site was then closed with deployment of an Angio-Seal device. CONCLUSION: 1. Patent circumflex artery stent. 2. Mild diffuse coronary disease. 3. Severe diagonal branch disease. 4. Borderline left ventricular hypokinesis. RECOMMENDATIONS: Given the above findings, intensified medical therapy and aggressive risk factor control was advised. Smoking abstinence was strongly encouraged. Khalif Mccall MD cc: Martinez Oconnor MD MTDD
[2018-12-10 18:24] VITALS: BP 101/53; PULSE 67; TEMP 98.2
--- NOTE | 2018-12-11 04:28 | DS ---
HISTORY OF PRESENT ILLNESS: This is a 78-year-old male who was admitted to the hospital because of chest pain. He had a cardiac cath done by Dr. Mccall and he was found to have coronary artery disease. He did not have any stents that were placed. Medical management was advised. The patient is going to be discharged and to follow as an outpatient with Dr. Mccall. PHYSICAL EXAMINATION: VITAL SIGNS: Temperature 98.2, pulse is 67, blood pressure 101/53, respirations 18. GENERAL: The patient is lying in bed, flat, comfortable. HEENT: No oral lesion. Anicteric sclerae. Moist mucosa. NECK: No JVD, adenopathy, or thyromegaly. CARDIOVASCULAR: S1 and S2, regular. No murmurs, rubs, or gallops. LUNGS: Clear to auscultation bilaterally. No wheeze, rales, or rhonchi. ABDOMEN: Bowel sounds are positive, soft, nontender and nondistended. EXTREMITIES: No cyanosis, clubbing or edema. LABORATORY DATA: Labs have been reviewed. ASSESSMENT: 1. Chest pain, resolved. 2. Coronary artery disease. 3. Dyslipidemia. 4. Smoking. PLAN: Patient is on Lipitor for dyslipidemia. He is on aspirin for his coronary artery disease. The patient is advised to quit smoking. He is going to follow up with Dr. Mccall as an outpatient. CONDITION: Stable. ACTIVITIES: Increase as tolerated. Santino Prado MD
== END 2018-12-10 15:00 | disposition home or self-care (01) | DRG 282 ==
LOC: ED 02:56 → ERH 05:44 → 2RSO 07:06 → OBSVTOIN 12-10 06:07 → 2RSO 12-10 11:59
PROVIDERS: ADMIT Internal Medicine Nephrology; ATTEND Internal Medicine Nephrology
PROC: 4A023N7 Measurement of Cardiac Sampling and Pressure, Left Heart, Percutaneous Approach (ICD-10-PCS; principal; 2018-12-10)
PROC: B211YZZ Fluoroscopy of Multiple Coronary Arteries using Other Contrast (ICD-10-PCS; 2018-12-10)
PROC: B215YZZ Fluoroscopy of Left Heart using Other Contrast (ICD-10-PCS; 2018-12-10)
DX: I21.4 Non-ST elevation (NSTEMI) myocardial infarction (principal); I25.10 Atherosclerotic heart disease of native coronary artery without angina pectoris; I10 Essential (primary) hypertension; N40.0 Benign prostatic hyperplasia without lower urinary tract symptoms; E78.5 Hyperlipidemia, unspecified; K57.30 Diverticulosis of large intestine without perforation or abscess without bleeding; F17.210 Nicotine dependence, cigarettes, uncomplicated; G89.29 Other chronic pain; Z91.14 Patient's other noncompliance with medication regimen; Z91.19 Patient's noncompliance with other medical treatment and regimen; I25.2 Old myocardial infarction; Z79.899 Other long term (current) drug therapy; Z79.82 Long term (current) use of aspirin; Z82.49 Family history of ischemic heart disease and other diseases of the circulatory system

== ENCOUNTER 2018-12-10 19:18 | Observation (INO) | payer MEDICARE, BC ==
[2018-12-10 19:18] VITALS: BMI 3124.4
[2018-12-10 19:33] VITALS: RESP 18
--- NOTE | 2018-12-10 19:40 | ED PDOC ---
Arrival/HPI - General Chief Complaint: Chest Pain Time Seen by Provider: 12/10/18 19:21 Historian: Patient - History of Present Illness Narrative History of Present Illness (Text): 12/10/18 19:34 78 year old M with pmh of CAD, HTN, HLD and cardiac stent present complaining of reoccurring chest pain since this evening. Patient describes symptoms as chest tightness radiating to shoulder and back. Patient was admitted today and undergone a cardiac catheterization; results noted. Patient was placed on medical therapy and discharged home. Patient reports chest pain returning shortly after returning home. Patient denies any fevers, shortness of breath, abdominal pain, nausea, vomiting, or any other complaint. Time/Duration: 24 hours Symptom Onset: Sudden Symptom Course: Unchanged Activities at Onset: Light Context: Home Past Medical History - Provider Review Nursing Documentation Reviewed: Yes - Cardiac Hx Cardiac Disorders: Yes - Pulmonary Hx Respiratory Disorders: No - Neurological Hx Neurological Disorder: No - HEENT Hx HEENT Disorder: No - Renal Hx Renal Disorder: No - Endocrine/Metabolic Hx Endocrine Disorders: Yes Hx Hyperthyroidism: Yes - Hematological/Oncological Hx Blood Disorders: No - Integumentary Hx Dermatological Disorder: No - Musculoskeletal/Rheumatological Hx Falls: Yes - Gastrointestinal Hx Gastrointestinal Disorders: No - Genitourinary/Gynecological Hx Genitourinary Disorders: No - Psychiatric Hx Psychophysiologic Disorder: No Hx Substance Use: No - Surgical History Hx Appendectomy: Yes Hx Coronary Stent: Yes - Anesthesia Hx Anesthesia: Yes Hx Anesthesia Reactions: No Hx Malignant Hyperthermia: No - Suicidal Assessment Feels Threatened In Home Enviroment: No Family/Social History - Physician Review Nursing Documentation Reviewed: Yes Family/Social History: Unknown Family HX Smoking Status: Current Some Days Smoker Hx Alcohol Use: Yes Hx Substance Use: No Allergies/Home Meds Allergies/Adverse Reactions: Allergies No Known Allergies Allergy (Verified 12/08/18 03:00) Home Medications: Home Meds Medication Instructions Recorded Confirmed oxyCODONE/Acetaminophen [Percocet 1 tab PO Q4H 08/03/17 08/03/17 5/325 mg Tab] Review of Systems - Physician Review All systems were reviewed & negative as marked: Yes - Review of Systems Constitutional: absent: Fevers ENT: absent: Sore Throat, Rhinorrhea Respiratory: absent: SOB, Cough Cardiovascular: Chest Pain. absent: Palpitations, Syncope Gastrointestinal: absent: Abdominal Pain, Diarrhea, Nausea, Vomiting Musculoskeletal: absent: Arthralgias, Back Pain Skin: absent: Rash, Ulcer, Cellulitis Neurological: absent: Headache, Dizziness Physical Exam Vital Signs Reviewed: Yes Vital Signs Temp Pulse Resp BP Pulse Ox 12/10/18 19:33 73 12/10/18 19:29 97.9 F 71 18 103/69 97 Temperature: Afebrile Blood Pressure: Normal Pulse: Regular Respiratory Rate: Normal Appearance: Positive for: Well-Appearing, Non-Toxic, Comfortable Pain Distress: Mild Mental Status: Positive for: Alert and Oriented X 3 - Systems Exam Head: Present: Atraumatic, Normocephalic Pupils: Present: PERRL Extroacular Muscles: Present: EOMI Conjunctiva: Present: Normal Mouth: Present: Moist Mucous Membranes Neck: Present: Normal Range of Motion Respiratory/Chest: Present: Clear to Auscultation, Good Air Exchange. No: Respiratory Distress, Accessory Muscle Use Cardiovascular: Present: Regular Rate and Rhythm, Normal S1, S2. No: Murmurs Abdomen: No: Tenderness, Distention, Peritoneal Signs Back: Present: Normal Inspection Upper Extremity: Present: Normal Inspection. No: Cyanosis, Edema Lower Extremity: Present: Normal Inspection. No: Edema Neurological: Present: GCS=15, CN II-XII Intact, Speech Normal Skin: Present: Warm, Dry, Normal Color. No: Rashes Psychiatric: Present: Alert, Oriented x 3, Normal Insight, Normal Concentration Medical Decision Making ED Course and Treatment: 12/10/18 19:40 Impression: 78 year old M present complaining of reoccurring chest pain since this evening. Patient describes symptoms as chest tightness radiating to shoulder and back. Patient was admitted today and undergone a cardiac catheterization; results noted. Patient was placed on medical therapy and discharged home. Patient reports chest pain returning shortly after returning home. Differential Diagnosis included but are not limited to: Acute coronary syndrome, coronary spasm, muscular pain Plan: -- Labs -- EKG -- Reassess and disposition Prior Visits: Notes and results from previous visits were reviewed. Progress Notes: 12/10/18 19:49 EKG EKG shows NSR at 73 BPM with normal intervals, no specific ST/T wave changes. Interpreted by me. 12/10/18 21:[address] Prado who accepts patient for admission to telemetry observation and requests a consult with Dr. Mccall. 12/10/18 22:12 Chest X-ray reviewed by me, shows no acute processes. - RAD Interpretation Radiology Orders: 12/10/18 19:33 CHEST PORTABLE [RAD] Stat - Scribe Statement The provider has reviewed the documentation as recorded by the Scribe Brian Chavez All medical record entries made by the Scribe were at my direction and personally dictated by me. I have reviewed the chart and agree that the record accurately reflects my personal performance of the history, physical exam, medical decision making, and the department course for this patient. I have also personally directed, reviewed, and agree with the discharge instructions and disposition. Disposition/Present on Arrival - Present on Arrival Any Indicators Present on Arrival: No History of DVT/PE: Yes History of Uncontrolled Diabetes: Yes Urinary Catheter: No History of Decub. Ulcer: No History Surgical Site Infection Following: None - Disposition Have Diagnosis and Disposition been Completed?: Yes Diagnosis: Chest pain Disposition: HOSPITALIZED Disposition Time: 20:59 Patient Problems: Current Active Problems Problem Status Onset Chest pain Acute Condition: STABLE
[2018-12-10] MEDS ORDERED: Morphine 2 mg/ml ISec IVP STA (19:49)
[2018-12-10] MEDS ORDERED: Nitroglycerin 2% Ointment Foilpak UD TOP STA (19:49)
[2018-12-10 20:05] LABS: INR 1.25; PARTIAL THROMBOPLASTIN TIME 31.5 Seconds (26.9-38.3); PROTHROMBIN TIME 13.9 SECONDS (9.4-12.5)
[2018-12-10 20:07] LABS: MEAN CELL VOLUME 84.5 fl (80.0-105.0); MEAN CORPUSCULAR HEMOGLOBIN 27.3 pg (25.0-35.0); MEAN CORPUSCULAR HGB CONC 32.3 g/dl (31.0-37.0); MEAN PLATELET VOLUME 12.1 fl (7.0-11.0); RBC 5.5 10^6/uL (3.5-6.1); RED CELL DISTRIBUTION WIDTH 14.7 % (11.5-14.5); WHITE BLOOD COUNT 5.8 10^3/uL (4.5-11.0)
[2018-12-10 20:14] LABS: ALB/GLOB RATIO 1.2 (1.1-1.8); ALBUMIN 3.9 g/dL (3.0-4.8); ALT/SGPT 20 U/L (7-56); AST/SGOT 82 U/L (17-59); BLOOD UREA NITROGEN 17 mg/dL (7-21); CALCIUM 9.1 mg/dL (8.4-10.5); GFR NON-AFRICAN AMERICAN > 60
[2018-12-10 20:44] LABS: TROPONIN I 0.59 ng/mL
[2018-12-10] MEDS ORDERED: Oxycodone/Acetaminophen 5/325 mg Tab PO PRN (22:05)
[2018-12-11 05:35] VITALS: TEMP 98.1; O2SAT 96
[2018-12-11] MEDS ORDERED: Metoprolol Succinate 25 mg XL Tab PO SCH (08:00)
[2018-12-11 08:04] LABS: BASO # 0.02 K/mm3 (0.0-2.0); BASO % 0.4 % (0.0-3.0); EOS # 0.1 (0.0-0.7); EOS % 2.3 % (1.5-5.0); HEMOGLOBIN 14.8 g/dL (14.0-18.0); LYMPH # 2.1 (1.2-3.4); LYMPH % 44.4 % (22.0-35.0); MEAN CELL VOLUME 85.5 fl (80.0-105.0); MEAN CORPUSCULAR HEMOGLOBIN 27.3 pg (25.0-35.0); MEAN CORPUSCULAR HGB CONC 31.9 g/dl (31.0-37.0); MEAN PLATELET VOLUME 12.2 fl (7.0-11.0); MONO # 0.3 (0.1-0.6); MONO % 5.7 % (1.0-6.0); RBC 5.43 10^6/uL (3.5-6.1); RED CELL DISTRIBUTION WIDTH 14.5 % (11.5-14.5); WHITE BLOOD COUNT 4.7 10^3/uL (4.5-11.0)
[2018-12-11 08:23] LABS: ALB/GLOB RATIO 1.2 (1.1-1.8); ALBUMIN 3.7 g/dL (3.0-4.8); ALT/SGPT 31 U/L (7-56); AST/SGOT 38 U/L (17-59); BLOOD UREA NITROGEN 14 mg/dL (7-21); CALCIUM 9.2 mg/dL (8.4-10.5); GFR NON-AFRICAN AMERICAN > 60
[2018-12-11 08:27] VITALS: BP 112/68; PULSE 67
--- NOTE | 2018-12-11 08:36 | RAD ---
Date of service: 12/10/2018 HISTORY: chest pain COMPARISON: 12/08/2018 TECHNIQUE: 1 view obtained. FINDINGS: LUNGS: No active pulmonary disease. PLEURA: No significant pleural effusion identified, no pneumothorax apparent. CARDIOVASCULAR: No aortic atherosclerotic calcification present. Aortic tortuosity Normal cardiac size. No pulmonary vascular congestion. OSSEOUS STRUCTURES: No significant abnormalities. VISUALIZED UPPER ABDOMEN: Normal. OTHER FINDINGS: None. IMPRESSION: No active disease.
[2018-12-11 08:40] LABS: TROPONIN I 0.66 ng/mL
--- NOTE | 2018-12-11 08:48 | CON ---
DATE OF CONSULTATION: 12/11/2018 REQUESTING PHYSICIAN: Dr. Prado. REASON FOR CONSULTATION: Chest pain. HISTORY: This is a 78-year-old male with known coronary artery disease and prior PCI, who was recently admitted with a small amount of iiw-BG-rrcifuq elevation myocardial fraction. He had undergone cardiac catheterization just yesterday and was found to have a patent circumflex stent, mild to moderate diffuse coronary artery disease and severe disease of small diagonal branches. Medical therapy was advised. He was discharged home yesterday, but presented to the emergency room here complaining of a chest discomfort. His troponin was 0.59; however, this was on decline from a high of 2 days ago of 2.48. Electrocardiogram showed no acute changes. He is currently chest-pain free. PAST MEDICAL HISTORY: His past history is notable for the problems mentioned above. He has undergone prior PCI. He does have a history of hyperlipidemia, and he continues to smoke. MEDICATIONS: His medications include aspirin, Plavix, metoprolol, and Lipitor. SOCIAL HISTORY: He continues to smoke. He denies alcohol use. He is a retired final expense agent. FAMILY HISTORY: Both parents are from age-related illness. REVIEW OF SYSTEMS: A 12-point review of systems is notable only for the problems mentioned above. He does have occasional joint pain. He denies any claudication. PHYSICAL EXAMINATION: GENERAL: He is an elderly man, who appears comfortable at the present time. VITAL SIGNS: His blood pressure is 114/66 with a pulse of 66 and sinus, respirations are 14. He is afebrile. HEENT: Normocephalic, atraumatic. NECK: Supple. No JVD noted. CHEST: Few scattered rhonchi heard. HEART: PMI in normal position. No pathological murmurs or gallops noted. ABDOMEN: Soft, nontender with normoactive bowel sounds. SKIN: Warm and dry. PSYCHIATRIC: Normal mood and affect. NEUROLOGIC: Alert and oriented x3. No gross motor or sensory deficits notable. DIAGNOSTIC DATA: Potassium 4.4, BUN and creatinine are 17 and 0.8. Glucose is 104. Troponin is 0.59 with a CK of 67. White count 5.8, hemoglobin and hematocrit are 15 and 46.5 with a platelet count of 172,000. AST is 82 with an ALT of 20. Electrocardiogram reveals a sinus rhythm with nonspecific ST-T abnormalities. Chest x-ray will be reviewed. IMPRESSION: 1. Recurrent chest pain, possibly cardiac secondary to a side branch disease, may also have a component of reflux esophagitis, as he has had issues with gastrointestinal distress in the past. 2. Known coronary artery disease, status post recent catheterization revealing no evidence of lesions suitable for intervention, and no evidence of severe major epicardial disease. 3. History of tobacco abuse. 4. Rest of the problems as noted. RECOMMENDATIONS: Isosorbide will be added to his regimen. Beta-adriana therapy should be continued at this time. Sodium and nitroglycerin use as needed was recommended. His clopidogrel will be discontinued given the potential for GI irritation. The need for smoking abstinence was discussed with him as well. From a cardiac standpoint, he is stable for discharge home today with outpatient followup. Continue risk factor control is advised. Khalif Mccall MD
--- NOTE | 2018-12-11 11:48 | CARD ---
APPROVED REPORT Date of service: 12/10/2018 EKG Measurement Heart [id number] ID [id number] <Conclusion> Normal sinus rhythm Possible Left atrial enlargement Borderline ECG
--- NOTE | 2018-12-12 20:58 | CP.PCM.HP ---
History of Present Illness - History of Present Illness History of Present Illness: H&P for Dr. Prado Service 12/11/18 CC: Chest pain s/p Cath HPI:78 year M with Pmhx of CAD s/p sten, HTN, HLD and recent cardiac cath (12/10/18) presented to [facility] ED with complaints of of reoccurring chest pain that began 12/10/18 evening. Patient described the symptoms as tightness in the chest that radiated to the shoulder and back on the left side predominately. He recently had a cardiac cath and was discharged with prescriptions, however was unable to fill them prior to chest discomfort reoccurring. Patient was seen and examined at bedside. Patient no longer has chest pain at this time. Patient denied fever, chills, shortness of breath, abdominal pains, nausea, vomiting, diarrhea, constipation or dysuria. PMHx: CAD w/ 1 stent at [facility] 10 years ago, [place], HLD, medications non-compliance, chronic tobacco abuse PSHx: appendectomy Allergies: NKDA Home Meds: reviewed Family Hx: CAD runs in family Social Hx: 2 cigarettes/day x 40+ years, denies alcohol or illicit drug use PMD: Dr. Oconnor Present on Admission - Present on Admission Any Indicators Present on Admission: No Review of Systems - Review of Systems Review of Systems: as per HPI otherwise negative Past Patient History - Past Social History Smoking Status: ex-smoker - CARDIAC Hx Cardiac Disorders: Yes Hx Angina: Yes Hx Hypertension: Yes - PULMONARY Hx Respiratory Disorders: No - NEUROLOGICAL Hx Neurological Disorder: No - HEENT Hx HEENT Problems: No - RENAL Hx Chronic Kidney Disease: No - ENDOCRINE/METABOLIC Hx Endocrine Disorders: Yes Hx Hyperthyroidism: Yes - HEMATOLOGICAL/ONCOLOGICAL Hx Blood Disorders: No - INTEGUMENTARY Hx Dermatological Problems: No - MUSCULOSKELETAL/RHEUMATOLOGICAL Hx Musculoskeletal Disorders: No Hx Falls: No - GASTROINTESTINAL Hx Gastrointestinal Disorders: No - GENITOURINARY/GYNECOLOGICAL Hx Genitourinary Disorders: No - PSYCHIATRIC Hx Psychophysiologic Disorder: No Hx Substance Use: No - SURGICAL HISTORY Hx Appendectomy: Yes Hx Cardiac Catheterization: Yes (12/10/2018) Hx Coronary Stent: Yes - ANESTHESIA Hx Anesthesia: Yes Hx Anesthesia Reactions: No Hx Malignant Hyperthermia: No Meds Home Medications: Home Medication List Medication Instructions Recorded Confirmed Type Isosorbide Mononitrate ER [Imdur 30 mg PO DAILY #30 tab 12/11/18 Rx ER] Allergies/Adverse Reactions: Allergies Allergy/AdvReac Type Severity Reaction Status Date / Time No Known Allergies Allergy Verified 12/08/18 03:00 Physical Exam - Constitutional Appears: No Acute Distress - Head Exam Head Exam: ATRAUMATIC, NORMAL INSPECTION, NORMOCEPHALIC - Eye Exam Eye Exam: EOMI, Normal appearance, PERRL Pupil Exam: NORMAL ACCOMODATION, PERRL - ENT Exam ENT Exam: Mucous Membranes Moist, Normal Exam - Respiratory Exam Respiratory Exam: Clear to Auscultation Bilateral, NORMAL BREATHING PATTERN - Cardiovascular Exam Cardiovascular Exam: REGULAR RHYTHM - GI/Abdominal Exam GI & Abdominal Exam: Normal Bowel Sounds, Soft. absent: Tenderness - Extremities Exam Extremities exam: Positive for: normal inspection - Back Exam Back exam: NORMAL INSPECTION - Neurological Exam Neurological exam: Alert, CN II-XII Intact, Normal Gait, Oriented x3, Reflexes Normal - Psychiatric Exam Psychiatric exam: Normal Affect, Normal Mood - Skin Skin Exam: Dry, Intact, Normal Color, Warm Results - Vital Signs Recent Vital Signs: Last Vital Signs Temp 98.1 F 12/11/18 05:29 Pulse 67 12/11/18 08:26 Resp 18 12/11/18 05:29 BP 112/68 12/11/18 08:26 Pulse Ox 96 12/11/18 05:29 - Labs Result Diagrams: 12/11/18 07:30 12/11/18 07:30 Assessment & Plan - Assessment and Plan (Free Text) Assessment: chest pain s/p cath HTN Dyslipidemia CAD s/p stent Tobacco abuse Plan: Patient is comfortable, without chest pain at current time. Patient was started on Imdur inpatient with resolution of symptoms. Dr. Mccall consulted and agreed with plan. Patient was provided a rx as well. Patient is to continue lipitor 40mg po daily for dyslipidemia, asa for cad, and strongly counselled for tobacco cessation. Patient is to follow up with Dr. Mccall, cardiology within 1 week upon discharge as well as his PMD within 1 week. - Date & Time Date: 12/11/18 Time: 09:00
--- NOTE | 2018-12-12 21:06 | CP.PCM.DIS ---
Provider - Provider Date of Admission: 12/10/18 20:47 Attending physician: Santino Prado MD Primary care physician: Santino Prado MD Consults: 12/10/18 20:58 Physician Consult Stat Comment: Consulting Provider: Khalif Mccall Consulting Physician: Khalif Mccall Reason for Consult: chest pain Time Spent in preparation of Discharge (in minutes): 45 Hospital Course - Lab Results Lab Results: Most Recent Lab Values WBC 4.7 10^3/uL (4.5-11.0) 12/11/18 07:30 RBC 5.43 10^6/uL (3.5-6.1) 12/11/18 07:30 Hgb 14.8 g/dL (14.0-18.0) 12/11/18 07:30 Hct 46.4 % (42.0-52.0) 12/11/18 07:30 MCV 85.5 fl (80.0-105.0) 12/11/18 07:30 MCH 27.3 pg (25.0-35.0) 12/11/18 07:30 MCHC 31.9 g/dl (31.0-37.0) 12/11/18 07:30 RDW 14.5 % (11.5-14.5) 12/11/18 07:30 Plt Count 161 10^3/uL (120.0-450.0) 12/11/18 07:30 MPV 12.2 fl (7.0-11.0) H 12/11/18 07:30 Neut % (Auto) 47.2 % (50.0-68.0) L 12/11/18 07:30 Lymph % (Auto) 44.4 % (22.0-35.0) H 12/11/18 07:30 Dare % (Auto) 5.7 % (1.0-6.0) 12/11/18 07:30 Eos % (Auto) 2.3 % (1.5-5.0) 12/11/18 07:30 Baso % (Auto) 0.4 % (0.0-3.0) 12/11/18 07:30 Lymph # (Auto) 2.1 (1.2-3.4) 12/11/18 07:30 Dare # (Auto) 0.3 (0.1-0.6) 12/11/18 07:30 Eos # (Auto) 0.1 (0.0-0.7) 12/11/18 07:30 Baso # (Auto) 0.02 K/mm3 (0.0-2.0) 12/11/18 07:30 Absolute Neuts (auto) 2.23 (1.4-6.5) 12/11/18 07:30 PT 13.9 SECONDS (9.4-12.5) H 12/10/18 19:49 INR 1.25 12/10/18 19:49 APTT 31.5 Seconds (26.9-38.3) 12/10/18 19:49 Sodium 139 mmol/L (132-148) 12/11/18 07:30 Potassium 4.4 mmol/L (3.6-5.0) 12/11/18 07:30 Chloride 104 mmol/L (98-107) 12/11/18 07:30 Carbon Dioxide 28 mmol/L (21-33) 12/11/18 07:30 Anion Gap 12 (10-20) 12/11/18 07:30 BUN 14 mg/dL (7-21) 12/11/18 07:30 Creatinine 0.7 mg/dl (0.8-1.5) L 12/11/18 07:30 Est GFR ( Amer) > 60 12/11/18 07:30 Est GFR (Non-Af Amer) > 60 12/11/18 07:30 Random Glucose 94 mg/dL (70-110) 12/11/18 07:30 Calcium 9.2 mg/dL (8.4-10.5) 12/11/18 07:30 Phosphorus 3.9 mg/dL (2.5-4.5) 12/11/18 07:30 Magnesium 2.0 mg/dL (1.7-2.2) 12/11/18 07:30 Total Bilirubin 0.7 mg/dL (0.2-1.3) 12/11/18 07:30 AST 38 U/L (17-59) 12/11/18 07:30 ALT 31 U/L (7-56) 12/11/18 07:30 Alkaline Phosphatase 71 U/L (38-126) 12/11/18 07:30 Lactate Dehydrogenase 588 U/L (333-699) 12/10/18 19:49 Total Creatine Kinase 67 U/L (35-230) 12/10/18 19:49 Troponin I 0.66 ng/mL H* 12/11/18 07:30 Total Protein 6.9 g/dL (5.8-8.3) 12/11/18 07:30 Albumin 3.7 g/dL (3.0-4.8) 12/11/18 07:30 Globulin 3.2 gm/dL 12/11/18 07:30 Albumin/Globulin Ratio 1.2 (1.1-1.8) 12/11/18 07:30 - Hospital Course Hospital Course: 8 year M with Pmhx of CAD s/p sten, HTN, HLD and recent cardiac cath (12/10/18) presented to [facility] ED with complaints of of reoccurring chest pain that began 12/10/18 evening. Patient described the symptoms as tightness in the chest that radiated to the shoulder and back on the left side predominately. He recently had a cardiac cath and was discharged with prescriptions, however was unable to fill them prior to chest discomfort reoccurring. Patient was seen and examined at bedside. Patient is comfortable, without chest pain at current time. Patient was started on Imdur inpatient with resolution of symptoms. Dr. Mccall consulted and agreed with plan. Patient was provided a rx as well. Patient is to continue lipitor 40mg po daily for dyslipidemia, asa for cad, and strongly counselled for tobacco cessation. Patient is to follow up with Dr. Mccall, cardiology within 1 week upon discharge as well as his PMD within 1 week. Discharge Exam - Head Exam Head Exam: ATRAUMATIC, NORMAL INSPECTION, NORMOCEPHALIC - Eye Exam Eye Exam: EOMI, Normal appearance, PERRL Pupil Exam: NORMAL ACCOMODATION, PERRL - ENT Exam ENT Exam: Mucous Membranes Moist - Respiratory Exam Respiratory Exam: Clear to PA & Lateral, NORMAL BREATHING PATTERN, UNREMARKABLE - Cardiovascular Exam Cardiovascular Exam: REGULAR RHYTHM, +S1, +S2 - GI/Abdominal Exam GI & Abdominal Exam: Normal Bowel Sounds, Soft. absent: Tenderness - Neurological Exam Neurological exam: Alert, CN II-XII Intact, Normal Gait, Oriented x3, Reflexes Normal - Psychiatric Exam Psychiatric exam: Normal Affect, Normal Mood - Skin Skin Exam: Dry, Intact, Normal Color, Warm Discharge Plan - Discharge Medications Prescriptions: Isosorbide Mononitrate ER [Imdur ER] 30 mg PO DAILY #30 tab - Follow Up Plan Condition: STABLE Disposition: HOME/ ROUTINE Instructions: Chest Pain (DC), Low Salt Diet, Chest Pain (DC), Chest Pain (GEN) Additional Instructions: 1. Follow up with primary care provider in 1-2 weeks. 2. Fill new prescription (Imdur 30 mg PO daily) at your pharmacy, resume medication tomorrow. 3. If symptoms return or worsen, please report to nearest emergency department or call 911. 4. Do not smoke Referrals: Santino Prado MD [Primary Care Provider] - Khalif Mccall MD [Staff Provider] -
== END 2018-12-11 09:24 | disposition home or self-care (01) ==
LOC: ED 19:18 → ERH 20:47 → 2RSO 22:29
PROVIDERS: ADMIT Internal Medicine Nephrology; ATTEND Internal Medicine Nephrology
DX: R07.89 Other chest pain (principal); I10 Essential (primary) hypertension; E78.5 Hyperlipidemia, unspecified; F17.200 Nicotine dependence, unspecified, uncomplicated; I25.10 Atherosclerotic heart disease of native coronary artery without angina pectoris; Z95.5 Presence of coronary angioplasty implant and graft
CPT/HCPCS: 36415; 71045; 80053; 82550; 83615; 83735; 84100; 84484; 85025; 85027; 85610; 85730; 93005; 99285; G0378